=== PATIENT | female | born 1955 | race Caucasian/White ===

== ENCOUNTER 2016-05-28 12:16 | Emergency (ER) | payer BC, OTHER ==
[2016-05-28] MEDS ORDERED: ASPIRIN 81 MG CHEW TABLET As Ordered ONE (14:26)
[2016-05-28 15:01] LABS: BASO % 0.7 % (0.0-1.0); EOS # 0.1 K/mm3 (0.0-0.50); EOS % 2.2 % (0.0-3.0); LARGE UNSTAINED CELL # 0.2 K/mm3 (0.0-0.4); LYMPH # 1.3 K/mm3 (1.5-4.5); LYMPH % 23.2 % (24.0-44.0); MEAN CORPUSCULAR HEMOGLOBIN 29.7 pg (27.0-33.0); MEAN CORPUSCULAR HGB CONC 32.3 g/dl (32.0-36.5); MEAN CORPUSCULAR VOLUME 92.1 fl (80.0-96.0); MONO # 0.5 K/mm3 (0.0-0.8); MONO % 8.6 % (0.0-5.0); NEUTROPHILS # 3.5 K/mm3 (1.8-7.7); NEUTROPHILS % 61.2 % (36.0-66.0); PLATELET COUNT, AUTOMATED 302 k/mm3 (150-450); RED CELL DISTRIBUTION WIDTH 12.2 % (11.5-14.5); WHITE BLOOD COUNT 5.7 K/mm3 (4.0-10.0)
[2016-05-28 15:04] LABS: ANION GAP 7 MEQ/L (8-16); BLOOD UREA NITROGEN 14 MG/DL (7-18); CALCIUM LEVEL 8.7 MG/DL (8.8-10.2); CARBON DIOXIDE LEVEL 27 MEQ/L (21-32); CHLORIDE LEVEL 110 MEQ/L (98-107); CREATININE FOR GFR 0.67 MG/DL (0.55-1.02); GLOMERULAR FILTRATION RATE > 60.0 (>45); GLUCOSE, FASTING 100 MG/DL (80-110); POTASSIUM SERUM 4.3 MEQ/L (3.5-5.1); SODIUM LEVEL 144 MEQ/L (136-145)
--- NOTE | 2016-05-28 15:41 | REP ---
TWO VIEW CHEST: Two views of the chest are performed. There is no acute infiltrate or pulmonary edema. The heart is normal in size. There is mild calcification of the thoracic aorta. The mediastinal silhouette is unchanged. Metallic plate and screws are seen in the lower cervical spine. There is no compression deformity of thoracic vertebral bodies. IMPRESSION: No acute pulmonary disease. Signed by Jurgen Ballesteros MD 05/28/2016 05:13 P
--- NOTE | 2016-05-28 19:28 | EDDOCDS ---
Nurse's Notes [facility] Name: Consuelo Nova Age: 60 yrs Sex: Female : 1955 Arrival Date: 05/28/2016 Time: 12:16 Bed OBSERVATION Private MD: Eliezer Mendiola Abdul Diagnosis: Low back pain;Nausea and vomiting Presentation: 05/28 12:28 Presenting complaint: Patient states: 45 mins ago had pain radiating up her back to the [facility] mid back then pain in her left jaw. denies pain at this time. denies chest pain with the back pain. Presenting complaint: Patient states: no injury at the time of pain- has bone spur in base of her spine. also having a lot of problems with constipation. Acute neurological deficits are not present. Mechanism of Injury: No Mechanism of Injury. Adult Sepsis Screening: The patient does not have new or worsening altered mentation. Patient's respiratory rate is less than 22. Systolic blood pressure is greater than 100. Patient has a qSOFA score of 0- Negative Sepsis Screen. Suicide/Homicide risk assessment- the patient denies having any suicidal and/or homicidal ideations and does not present with any other emotional, behavioral or mental health complaints. Status: Patient is not a branch service representative or dependent. Transition of care: patient was not received from another setting of care. 12:28 Method Of Arrival: Walkin/Carried/Asstd [facility] 12:34 Acuity: FARHEEN Level 3 [facility] Triage Assessment: 12:32 General: Appears in no apparent distress, Behavior is appropriate for age, cooperative. [facility] Pain: Pain currently is 2 out of 10 on a pain scale. At worst was 5 out of 10 on a pain scale. Musculoskeletal: Reports mid spine pain. 19:27 Pt Declines HIV testing. ko2 Historical: - Allergies: PENICILLINS; codeine; - Home Meds: 1. Synthroid 137 mcg Oral tab 1 tab once daily - PMHx: Thyroid problem; - PSHx: Thyroidectomy; Tonsillectomy; 5-6 vertbrael fusion; Hysterectomy; - Social history: Smoking status: Patient states former smoker of tobacco. No barriers to communication noted, The patient speaks fluent Tajik, Speaks appropriately for age. - Family history: Not pertinent. - : The pt / caregiver states he / she is not on anticoagulants. Home medication list is obtained from the patient. - Exposure Risk Screening:: None identified. Screenin:25 Screening information is obtained from the patient. Fall risk: No risks identified. ko2 Assistance ADL's: requires no assistance with activities of daily living. Abuse/DV Screen: The patient / caregiver reports he/she is: not in a situation that causes fear, pain or injury. Nutritional screening: No deficits noted. Advance Directives: Currently, there is no health care proxy. There is no active DNR order. There is no living will. There is no Power of Level Vial Inspector. home support is adequate. Assessment: 13:16 Adult Sepsis Screening: The patient does not have new or worsening altered mentation. dsf Patient's respiratory rate is less than 22. Systolic blood pressure is greater than 100. Patient has a qSOFA score of 0- Negative Sepsis Screen. General: Appears in no apparent distress, Behavior is appropriate for age, cooperative. Pain: Denies pain. Neurological: Level of Consciousness is awake, alert, Oriented to person, place, time. Cardiovascular: Capillary refill < 3 seconds Heart tones S1 S2 present Rhythm is sinus rhythm No ectopy. Chest pain is denied. Respiratory: Airway is patent Respiratory effort is even, unlabored, Respiratory pattern is regular, symmetrical, Breath sounds are clear bilaterally. Denies shortness of breath. GI: Abdomen is non- distended Bowel sounds present X 4 quads. Abd is soft and non tender X 4 quads. Derm: Skin is pink, warm & dry. 14:15 General: Appears in no apparent distress, comfortable, Behavior is appropriate for age, dsf cooperative. Pain: Denies pain. Neurological: Level of Consciousness is awake, alert. Cardiovascular: Capillary refill < 3 seconds Rhythm is sinus rhythm No ectopy. Chest pain is denied. Respiratory: Airway is patent Respiratory effort is even, unlabored, Respiratory pattern is regular, symmetrical. Derm: Skin is pink, warm & dry. 15:15 General: Appears in no apparent distress, comfortable, Behavior is appropriate for age, dsf cooperative. Neurological: Level of Consciousness is awake, alert. Cardiovascular: Capillary refill < 3 seconds. Respiratory: Airway is patent Respiratory effort is even, unlabored, Respiratory pattern is regular, symmetrical. Derm: Skin is pink, warm & dry. 16:15 Adult Sepsis Screening: The patient does not have new or worsening altered mentation. dsf Patient's respiratory rate is less than 22. Systolic blood pressure is greater than 100. Patient has a qSOFA score of 0- Negative Sepsis Screen. General: Appears in no apparent distress, comfortable, Behavior is appropriate for age, cooperative. Pain: Denies pain. Neurological: Level of Consciousness is awake, alert, Oriented to person, place, time. Cardiovascular: Capillary refill < 3 seconds Rhythm is sinus rhythm No ectopy. Chest pain is denied. Respiratory: Airway is patent Respiratory effort is even, unlabored, Respiratory pattern is regular, symmetrical, Denies shortness of breath. GI: Abdomen is non- distended. Derm: Skin is pink, warm & dry. 17:15 General: Appears in no apparent distress, comfortable, Behavior is appropriate for age, dsf cooperative. Pain: Denies pain. Neurological: Level of Consciousness is awake, alert. Cardiovascular: Capillary refill < 3 seconds Rhythm is sinus rhythm No ectopy. Chest pain is denied. Respiratory: Airway is patent Respiratory effort is even, unlabored, Respiratory pattern is regular, symmetrical, Denies shortness of breath. Derm: Skin is pink, warm & dry. 19:25 General: Appears in no apparent distress, comfortable, Behavior is appropriate for age, ko2 cooperative. Pain: Denies pain. Neurological: Level of Consciousness is awake, alert. Respiratory: Airway is patent Respiratory effort is even, unlabored, Respiratory pattern is regular, symmetrical. Derm: Skin is pink, warm & dry. Vital Signs: 12:18 BP 155 / 92; Pulse 102; Resp 18 S; Temp 97.3(O); Pulse Ox 98% on R/A; Weight 63.5 kg gr2 (R); Height 5 ft. 4 in. (162.56 cm) (R); Pain 4/10; 12:50 BP 148 / 83 (auto/); dsf 12:51 Pulse Ox 98% ; dsf 12:52 Pulse 90 MON; Pulse Ox 97% ; dsf 13:20 BP 127 / 72 (auto/); dsf 13:20 Pulse 88 MON; Pulse Ox 95% ; dsf 13:50 BP 126 / 70 (auto/); dsf 13:51 Pulse 84 MON; Pulse Ox 93% ; dsf 14:18 Pulse Ox 96% on R/A; dsf 14:20 BP 151 / 80 (auto/); dsf 14:20 Pulse 86 MON; Resp 20; Pulse Ox 96% on R/A; Pain 0/10; dsf 14:50 BP 148 / 73 (auto/); dsf 14:50 Pulse 74 MON; Pulse Ox 97% ; dsf 15:20 BP 136 / 68 (auto/); dsf 15:20 Pulse 80 MON; Pulse Ox 95% ; dsf 15:50 BP 122 / 71 (auto/); dsf 15:50 Pulse 78 MON; Pulse Ox 95% ; dsf 16:20 BP 126 / 73 (auto/); dsf 16:21 Pulse 80 MON; Resp 20; Temp 97.2(O); Pulse Ox 95% on R/A; Pain 0/10; dsf 19:26 BP 116 / 66; Pulse 81; Resp 16; Temp 97.4; Pulse Ox 96% ; Pain 0/10; ko2 12:18 Body Mass Index 24.03 (63.50 kg, 162.56 cm) gr2 Vitals: 12:18 Log In Time: May 28, 2016 at 12:18. gr2 ED Course: 12:17 Patient visited by Meghan Salomon. gr2 12:17 Eliezer Mendiola is Private Physician. gr2 12:17 Patient moved to Waiting gr2 12:20 Patient visited by Meghan Salomon. gr2 12:20 Patient moved to Pre RCE gr2 12:33 Patient moved to PD2 / 27 srm 12:34 Triage Initiated srm 12:38 The patient / caregiver is instructed regarding the plan of care and ED course. Cardiac dsf monitor on. Pulse ox on. NIBP on. 12:38 EKG done. (by ED staff). Reviewed by Dnaielito Ch MD. jrd 12:39 Patient visited by Dillon Oneal PCA. jrd 12:40 Patient moved to 6 dsf 12:42 Report given to Lynsey Joyce rn. srm 13:01 Patient has correct armband on for positive identification. Placed in gown. Bed in low ct3 position. Call light in reach. Side rails up X2. 13:02 Patient visited by Hilary Brar PCA. ct3 13:17 Patient visited by Lore Joyce RN. dsf 13:27 Kristin German DO is PHCP. jo4 13:27 Danielito Ch MD is Attending Physician. jo4 14:01 Patient visited by Kristin German DO. jo4 14:01 Patient visited by Kristin German DO. jo4 14:23 Patient visited by Lore Joyce RN. dsf 14:23 Cardiac Marker Panel Sent. dsf 14:23 Troponin Sent. dsf 14:32 Patient visited by Danielito Ch MD. br1 14:34 CBC with Diff Sent. dsf 14:46 Inserted saline lock: 20 gauge in right antecubital area The patient tolerated the dsf procedure well. 14:59 Patient moved to Radiology dsf 14:59 BASIC METABOLIC PROFILE Sent. dsf 15:03 Patient moved to 6 dsf 15:32 Patient visited by Lore Joyce RN. dsf 15:39 Patient moved to OBSERVATION jo4 16:14 Chest, 2 View (pa\E\lat) Returned. EDMS 16:34 [facility] [place] was scanned into [employer] and attached to record. gjb 16:38 Patient visited by Lore Joyce RN. dsf 17:14 Chest, 2 View (pa\E\lat) Returned. EDMS 17:48 Patient visited by Lore Joyce RN. dsf 18:16 Chest, 2 View (pa\E\lat) Returned. EDMS 18:24 Eliezer Mendiola is Referral Physician. jo4 18:29 Gold Villavicencio is Referral Physician. jo4 19:09 Ashwini Gonzalez,FELICIA is Primary Nurse. ko2 19:26 Discontinued lock intact, bleeding controlled, pressure dressing applied, No ko2 redness/swelling at site. No procedures done that require assistance. Administered Medications: 14:29 Not Given (pt took 2 at home provider notified ): Aspirin Chewable Tablet 324 mg PO oncedsf 14:31 Drug: Aspirin 162 mg [aspirin 81 mg chewable tablet (2 tabs)] Route: PO; dsf Order Results: Lab Order: Cardiac Marker Panel; SPEC'M 05/28/16 14:22 Test: CPK CREATINE PHOSPHOKINASE; Value: 74; Range: 26-192; Units: U/L; Status: F Test: CK-MB VALUE MASS; Value: 1.3; Range: 0.0-3.6; Units: NG/ML; Status: F Test: MB/CK RELATIVE INDEX; Value: 1.75; Range: < OR =4; Status: F Test: TROPONIN I; Value: < 0.02; Range: < 0.10; Units: NG/ML; Status: F Test Note: ; DIAGNOSIS CRITERIA MMB ng/ml Relative Index (RI) NON-AMI < or = 5 N/A BALLESTEROS ZONE > 5 < or = 4 AMI > 5 > 4 Lab Order: CBC with Diff; SPEC'M 05/28/16 14:22 Test: WHITE BLOOD COUNT; Value: 5.7; Range: 4.0-10.0; Units: K/mm3; Status: F Test: RED BLOOD COUNT; Value: 4.65; Range: 4.00-5.40; Units: M/mm3; Status: F Test: HEMOGLOBIN; Value: 13.8; Range: 12.0-16.0; Units: g/dl; Status: F Test: HEMATOCRIT; Value: 42.8; Range: 36.0-47.0; Units: %; Status: F Test: MEAN CORPUSCULAR VOLUME; Value: 92.1; Range: 80.0-96.0; Units: fl; Status: F Test: MEAN CORPUSCULAR HEMOGLOBIN; Value: 29.7; Range: 27.0-33.0; Units: pg; Status: F Test: MEAN CORPUSCULAR HGB CONC; Value: 32.3; Range: 32.0-36.5; Units: g/dl; Status: F Test: RED CELL DISTRIBUTION WIDTH; Value: 12.2; Range: 11.5-14.5; Units: %; Status: F Test: PLATELET COUNT, AUTOMATED; Value: 302; Range: 150-450; Units: k/mm3; Status: F Test: NEUTROPHILS %; Value: 61.2; Range: 36.0-66.0; Units: %; Status: F Test: LYMPH %; Value: 23.2; Range: 24.0-44.0; Abnormal: Below low normal; Units: %; Status: F Test: MONO %; Value: 8.6; Range: 0.0-5.0; Abnormal: Above high normal; Units: %; Status: F Test: EOS %; Value: 2.2; Range: 0.0-3.0; Units: %; Status: F Test: BASO %; Value: 0.7; Range: 0.0-1.0; Units: %; Status: F Test: LARGE UNSTAINED CELL %; Value: 4.0; Range: 0.0-4.0; Units: %; Status: F Test: NEUTROPHILS #; Value: 3.5; Range: 1.8-7.7; Units: K/mm3; Status: F Test: LYMPH #; Value: 1.3; Range: 1.5-4.5; Abnormal: Below low normal; Units: K/mm3; Status: F Test: MONO #; Value: 0.5; Range: 0.0-0.8; Units: K/mm3; Status: F Test: EOS #; Value: 0.1; Range: 0.0-0.50; Units: K/mm3; Status: F Test: BASO #; Value: 0.0; Range: 0.0-0.2; Units: K/mm3; Status: F Test: LARGE UNSTAINED CELL #; Value: 0.2; Range: 0.0-0.4; Units: K/mm3; Status: F Lab Order: BASIC METABOLIC PROFILE; SPEC'M 05/28/16 14:22 Test: GLUCOSE, FASTING; Value: 100; Range: 80-110; Units: MG/DL; Status: F Test: BLOOD UREA NITROGEN; Value: 14; Range: 7-18; Units: MG/DL; Status: F Test: CREATININE FOR GFR; Value: 0.67; Range: 0.55-1.02; Units: MG/DL; Status: F Test: SODIUM LEVEL; Range: 136-145; Units: MEQ/L; Status: I Test: POTASSIUM SERUM; Range: 3.5-5.1; Units: MEQ/L; Status: I Test: CHLORIDE LEVEL; Range: 98-107; Units: MEQ/L; Status: I Test: CARBON DIOXIDE LEVEL; Range: 21-32; Units: MEQ/L; Status: I Test: ANION GAP; Range: 8-16; Units: MEQ/L; Status: I Test: CALCIUM LEVEL; Range: 8.8-10.2; Units: MG/DL; Status: I Test: GLOMERULAR FILTRATION RATE; Value: > 60.0; Range: >45; Status: F Test: SODIUM LEVEL; Value: 144; Range: 136-145; Units: MEQ/L; Status: F Test: POTASSIUM SERUM; Value: 4.3; Range: 3.5-5.1; Units: MEQ/L; Status: F Test: CHLORIDE LEVEL; Value: 110; Range: 98-107; Abnormal: Above high normal; Units: MEQ/L; Status: F Test: CARBON DIOXIDE LEVEL; Value: 27; Range: 21-32; Units: MEQ/L; Status: F Test: ANION GAP; Value: 7; Range: 8-16; Abnormal: Below low normal; Units: MEQ/L; Status: F Test: CALCIUM LEVEL; Value: 8.7; Range: 8.8-10.2; Abnormal: Below low normal; Units: MG/DL; Status: F Test Note: ; Units are mL/min/1.73 m2 Chronic Kidney Disease Staging per NKF: Stage I & II GFR >=60 Normal to Mildly Decreased Stage III GFR 30-59 Moderately Decreased Stage IV GFR 15-29 Severely Decreased Stage V GFR <15 Very Little GFR Left ESRD GFR <15 on [facility] Lab Order: CARDIAC MARKER PANEL; SPEC'M 05/28/16 17:41 Test: CPK CREATINE PHOSPHOKINASE; Value: 76; Range: 26-192; Units: U/L; Status: F Test: CK-MB VALUE MASS; Value: 1.2; Range: 0.0-3.6; Units: NG/ML; Status: F Test: MB/CK RELATIVE INDEX; Value: 1.57; Range: < OR =4; Status: F Test: TROPONIN I; Value: < 0.02; Range: < 0.10; Units: NG/ML; Status: F Test Note: ; DIAGNOSIS CRITERIA MMB ng/ml Relative Index (RI) NON-AMI < or = 5 N/A BALLESTEROS ZONE > 5 < or = 4 AMI > 5 > 4 Radiology Order: Chest, 2 View (pa\E\lat) Test: Chest, 2 View (pa\E\lat) REASON FOR EXAMINATION: Nausea; TWO VIEW CHEST:; ; Two views of the chest are performed. There is no acute infiltrate or pulmonary; edema. The heart is normal in size. There is mild calcification of the thoracic; aorta. The mediastinal silhouette is unchanged. Metallic plate and screws are; seen in the lower cervical spine. There is no compression deformity of thoracic; vertebral bodies.; ; IMPRESSION:; ; No acute pulmonary disease.; ; ; Signed by; Jurgen Ballesteros MD 05/28/2016 05:13 P; Outcome: 18:24 Discharge ordered by Provider. jo4 19:27 Discharge Assessment: Patient awake, alert and oriented x 3. No cognitive and/or ko2 functional deficits noted. Patient verbalized understanding of disposition instructions. patient administered narcotics - no. The following High Risk Discharge criteria are identified: None. Discharged to home ambulatory. Condition: stable. Discharge instructions given to patient, Instructed on discharge instructions, follow up and referral plans. Demonstrated understanding of instructions, Pt was receptive of discharge instructions/ teaching. No special radiology studies were completed. Property sent home with patient. 19:27 Patient left the ED. ko2 Signatures: Dispatcher [employer] EDMS Mariana Shaver, RN RN [facility] Danielito Ch MD MD br1 Hilary Brar, CASH MANAGEMENT OFFICER CASH MANAGEMENT OFFICER ct3 Lore Joyce,RN RN dsf Meghan Salomon gr2 Ashwini Gonzalez RN RN ko2 Dillon Oneal, CASH MANAGEMENT OFFICER CASH MANAGEMENT OFFICER Adriana Arreola Jane, DO DO jo4 Corrections: (The following items were deleted from the chart) 14:58 14:34 BASIC METABOLIC PROFILE+LAB sent. dsf EDMS 16:37 16:21 Pulse 80bpm; Monitor; Pulse Ox 95%; dsf dsf MTDD
--- NOTE | 2016-05-28 19:28 | EDDOCDS ---
Physician Documentation [facility] Name: Consuelo Nova Age: 60 yrs Sex: Female : 1955 Arrival Date: 05/28/2016 Time: 12:16 Bed OBSERVATION Private MD: Eliezer Mendiola Abdul Disposition: 05/28 18:25 I have independently interviewed and examined the patient, and I agree with the br1 investigation, diagnosis and treatment plan as documented by the Resident. Disposition: 05/28/16 18:24 Discharged to Home/Self Care. Impression: Low back pain, Nausea and vomiting. - Condition is Stable. - Work Release Form - 1 day, Medication Reconciliation, Local Pharmacy Hours form. - Follow up: Eliezer Mendiola; When: Call to arrange an appointment; Reason: Recheck today's complaints, Continuance of care. Follow up: Gold Villavicencio; When: Call to arrange an appointment; Reason: Recheck today's complaints. - Problem is new. - Symptoms have improved. - Notes: You were evaluated in the emergency department for radiating back pain causing nausea, vomiting, and left jaw pain. A cardiac work-up has been negative. Please follow-up with Dr. Mendiola at your soonest convenience to discuss today's complaints. Also schedule an appointment with Dr. Villavicencio' office (valuer) at your soonest convenience. Historical: - Allergies: PENICILLINS; codeine; - Home Meds: 1. Synthroid 137 mcg Oral tab 1 tab once daily - PMHx: Thyroid problem; - PSHx: Thyroidectomy; Tonsillectomy; 5-6 vertbrael fusion; Hysterectomy; - Social history: Smoking status: Patient states former smoker of tobacco. No barriers to communication noted, The patient speaks fluent Czech, Speaks appropriately for age. - Family history: Not pertinent. - : The pt / caregiver states he / she is not on anticoagulants. Home medication list is obtained from the patient. - Exposure Risk Screening:: None identified. Vital Signs: 12:18 BP 155 / 92; Pulse 102; Resp 18 S; Temp 97.3(O); Pulse Ox 98% on R/A; Weight 63.5 kg / gr2 139.99 lbs (R); Height 5 ft. 4 in. (162.56 cm) (R); Pain 4/10; 12:50 BP 148 / 83 (auto/); dsf 12:51 Pulse Ox 98% ; dsf 12:52 Pulse 90 MON; Pulse Ox 97% ; dsf 13:20 BP 127 / 72 (auto/); dsf 13:20 Pulse 88 MON; Pulse Ox 95% ; dsf 13:50 BP 126 / 70 (auto/); dsf 13:51 Pulse 84 MON; Pulse Ox 93% ; dsf 14:18 Pulse Ox 96% on R/A; dsf 14:20 BP 151 / 80 (auto/); dsf 14:20 Pulse 86 MON; Resp 20; Pulse Ox 96% on R/A; Pain 0/10; dsf 14:50 BP 148 / 73 (auto/); dsf 14:50 Pulse 74 MON; Pulse Ox 97% ; dsf 15:20 BP 136 / 68 (auto/); dsf 15:20 Pulse 80 MON; Pulse Ox 95% ; dsf 15:50 BP 122 / 71 (auto/); dsf 15:50 Pulse 78 MON; Pulse Ox 95% ; dsf 16:20 BP 126 / 73 (auto/); dsf 16:21 Pulse 80 MON; Resp 20; Temp 97.2(O); Pulse Ox 95% on R/A; Pain 0/10; dsf 19:26 BP 116 / 66; Pulse 81; Resp 16; Temp 97.4; Pulse Ox 96% ; Pain 0/10; ko2 12:18 Body Mass Index 24.03 (63.50 kg, 162.56 cm) gr2 MDM: 12:33 ECG WITH READING ER PHYS+CARDIAG ordered. EDMS 14:16 Aviation Electrician ordered. jo4 14:17 Cardiac Marker Panel Ordered. EDMS 14:17 Troponin Ordered. EDMS 14:23 Aspirin Chewable Tablet 324 mg PO once ordered. jo4 14:25 Chest, 2 View (pa\E\lat) Ordered. EDMS 14:29 Aspirin 162 mg PO once ordered. dsf 14:33 IV Saline Lock ordered. br1 14:33 CBC with Diff Ordered. EDMS 14:58 BASIC METABOLIC PROFILE Ordered. EDMS 15:08 CBC with Diff Reviewed. jo4 15:08 BASIC METABOLIC PROFILE Reviewed. jo4 15:09 Cardiac Marker Panel Reviewed. jo4 15:32 Financial registration complete. gjb 15:38 Repeat EKG (put time details section) ordered. jo4 15:38 Redraw CIP &Troponin (put time in details section) ordered. jo4 15:44 Redraw CIP &Troponin (put time in details section) complete. lbd 15:44 Repeat EKG (put time details section) complete. lbd 15:46 CARDIAC MARKER PANEL Ordered. EDMS 15:47 ECG WITH READING ER PHYS ordered. EDMS 16:33 Chest, 2 View (pa\E\lat) Reviewed. jo4 16:34 [facility] Payment Agreement was scanned into [employer] and attached to record. gjb 18:14 Chest, 2 View (pa\E\lat) Reviewed. jo4 18:22 CARDIAC MARKER PANEL Reviewed. jo4 18:23 Chest, 2 View (pa\E\lat) Reviewed. br1 18:25 ED course: 60 you F seen with resident. Complained of back pain that radiated to left br1 jaw, now resolved. No further chest pain, shortness of breath, lightheadedness, or any other concerns. Serial EKG unchanged, enzymes negative. Discussed case with Dr. Villavicencio. Plan DC home, follow up with Dr. Villavicencio in the office. Patient in agreement, will call for appointment.. Administered Medications: 14:29 Not Given (pt took 2 at home provider notified ): Aspirin Chewable Tablet 324 mg PO oncedsf 14:31 Drug: Aspirin 162 mg [aspirin 81 mg chewable tablet (2 tabs)] Route: PO; dsf Signatures: Dispatcher [employer] EDMI Kaykay Lugo, Airworthiness Safety Inspector [facility] Mariana Shaver RN RN srm Roggie, Brian, MD MD br1 Lore Joyce RN RN dsf Ashwini Gonzalez RN RN [email or web address] Adriana Thibodeaux [employer] [facility] Kristin German DO DO jo4 The chart was reviewed and I authenticate all verbal orders and agree with the evaluation and treatment provided.Corrections: (The following items were deleted from the chart) 14:58 14:33 BASIC METABOLIC PROFILE+LAB ordered. EDMS EDMS 15:38 15:36 Repeat EKG (put time details section) ordered. br1 jo4 15:38 15:36 Redraw CIP &Troponin (put time in details section) ordered. br1 jo4 Attachments: 16:34 [facility] Payment Agreement gjb MTDD
--- NOTE | 2016-05-29 08:20 | ECGEPIP ---
Stationary ECG Study [facility] - ED Test Date: 2016-05-28 Pat Name: HIEN SANCHEZ Department: Room: - Gender: F Conference Translator: osmin : 1955 Requested By: JORDYN Wilson Order Number: [id number] Reading MD: Caity Oliver Measurements Intervals [place] Rate: 87 P: 56 TN: 128 QRS: -3 QRSD: 92 T: 24 QT: 353 QTc: 427 Interpretive Statements SINUS RHYTHM MINIMAL ST DEPRESSION INCREASED RATE 05/23/14 Electronically Signed On 05-29-2016 8:20:29 EST by Caity Oliver
--- NOTE | 2016-05-29 08:37 | ECGEPIP ---
Stationary ECG Study [facility] - ED Test Date: 2016-05-28 Pat Name: HIEN SANCHEZ Department: Room: - Gender: F Senior Front End Engineer: osmin : 1955 Requested By: MARY GRACIA Order Number: [id number] Reading MD: Caity Oliver Measurements Intervals [place] Rate: 79 P: 44 [place]: 125 QRS: -10 QRSD: 116 T: 2 QT: 379 QTc: 436 Interpretive Statements SINUS RHYTHM MODERATE INTRAVENTRICULAR CONDUCTION DELAY MINIMAL VOLTAGE CRITERIA FOR LVH, CONSIDER NORMAL VARIANT MINIMAL ST DEPRESSION DECREASED RATE 05/28/16 12:39 Electronically Signed On 05-29-2016 8:37:04 EST by Caity Oliver
--- NOTE | 2016-05-30 20:28 | EDDOCDS ---
Physician Documentation [facility] Name: Consuelo Nova Age: 60 yrs Sex: Female : 1955 Arrival Date: 05/28/2016 Time: 12:16 Bed OBSERVATION Private MD: Eliezer Mendiola Abdul Disposition: 05/28 18:25 I have independently interviewed and examined the patient, and I agree with the br1 investigation, diagnosis and treatment plan as documented by the Resident. Disposition: 05/28/16 18:24 Discharged to Home/Self Care. Impression: Low back pain, Nausea and vomiting. - Condition is Stable. - Work Release Form - 1 day, Medication Reconciliation, Local Pharmacy Hours form. - Follow up: Eliezer Mendiola; When: Call to arrange an appointment; Reason: Recheck today's complaints, Continuance of care. Follow up: Gold Villavicencio; When: Call to arrange an appointment; Reason: Recheck today's complaints. - Problem is new. - Symptoms have improved. - Notes: You were evaluated in the emergency department for radiating back pain causing nausea, vomiting, and left jaw pain. A cardiac work-up has been negative. Please follow-up with Dr. Mendiola at your soonest convenience to discuss today's complaints. Also schedule an appointment with Dr. Villavicencio' office (incident response consultant) at your soonest convenience. Historical: - Allergies: PENICILLINS; codeine; - Home Meds: 1. Synthroid 137 mcg Oral tab 1 tab once daily - PMHx: Thyroid problem; - PSHx: Thyroidectomy; Tonsillectomy; 5-6 vertbrael fusion; Hysterectomy; - Social history: Smoking status: Patient states former smoker of tobacco. No barriers to communication noted, The patient speaks fluent [place], Speaks appropriately for age. - Family history: Not pertinent. - : The pt / caregiver states he / she is not on anticoagulants. Home medication list is obtained from the patient. - Exposure Risk Screening:: None identified. Vital Signs: 12:18 BP 155 / 92; Pulse 102; Resp 18 S; Temp 97.3(O); Pulse Ox 98% on R/A; Weight 63.5 kg / gr2 139.99 lbs (R); Height 5 ft. 4 in. (162.56 cm) (R); Pain 4/10; 12:50 BP 148 / 83 (auto/); dsf 12:51 Pulse Ox 98% ; dsf 12:52 Pulse 90 MON; Pulse Ox 97% ; dsf 13:20 BP 127 / 72 (auto/); dsf 13:20 Pulse 88 MON; Pulse Ox 95% ; dsf 13:50 BP 126 / 70 (auto/); dsf 13:51 Pulse 84 MON; Pulse Ox 93% ; dsf 14:18 Pulse Ox 96% on R/A; dsf 14:20 BP 151 / 80 (auto/); dsf 14:20 Pulse 86 MON; Resp 20; Pulse Ox 96% on R/A; Pain 0/10; dsf 14:50 BP 148 / 73 (auto/); dsf 14:50 Pulse 74 MON; Pulse Ox 97% ; dsf 15:20 BP 136 / 68 (auto/); dsf 15:20 Pulse 80 MON; Pulse Ox 95% ; dsf 15:50 BP 122 / 71 (auto/); dsf 15:50 Pulse 78 MON; Pulse Ox 95% ; dsf 16:20 BP 126 / 73 (auto/); dsf 16:21 Pulse 80 MON; Resp 20; Temp 97.2(O); Pulse Ox 95% on R/A; Pain 0/10; dsf 19:26 BP 116 / 66; Pulse 81; Resp 16; Temp 97.4; Pulse Ox 96% ; Pain 0/10; ko2 12:18 Body Mass Index 24.03 (63.50 kg, 162.56 cm) gr2 MDM: 12:33 ECG WITH READING ER PHYS+CARDIAG ordered. EDMS 14:16 Slate Cutter ordered. jo4 14:17 Cardiac Marker Panel Ordered. EDMS 14:17 Troponin Ordered. EDMS 14:23 Aspirin Chewable Tablet 324 mg PO once ordered. jo4 14:25 Chest, 2 View (pa\E\lat) Ordered. EDMS 14:29 Aspirin 162 mg PO once ordered. dsf 14:33 IV Saline Lock ordered. br1 14:33 CBC with Diff Ordered. EDMS 14:58 BASIC METABOLIC PROFILE Ordered. EDMS 15:08 CBC with Diff Reviewed. jo4 15:08 BASIC METABOLIC PROFILE Reviewed. jo4 15:09 Cardiac Marker Panel Reviewed. jo4 15:32 Financial registration complete. gjb 15:38 Repeat EKG (put time details section) ordered. jo4 15:38 Redraw CIP &Troponin (put time in details section) ordered. jo4 15:44 Redraw CIP &Troponin (put time in details section) complete. lbd 15:44 Repeat EKG (put time details section) complete. lbd 15:46 CARDIAC MARKER PANEL Ordered. EDMS 15:47 ECG WITH READING ER PHYS ordered. EDMS 16:33 Chest, 2 View (pa\E\lat) Reviewed. jo4 16:34 [facility] Payment Agreement was scanned into Blockchain and attached to record. gjb 18:14 Chest, 2 View (pa\E\lat) Reviewed. jo4 18:22 CARDIAC MARKER PANEL Reviewed. jo4 18:23 Chest, 2 View (pa\E\lat) Reviewed. br1 18:25 ED course: 60 you F seen with resident. Complained of back pain that radiated to left br1 jaw, now resolved. No further chest pain, shortness of breath, lightheadedness, or any other concerns. Serial EKG unchanged, enzymes negative. Discussed case with Dr. Villavicencio. Plan DC home, follow up with Dr. Villavicencio in the office. Patient in agreement, will call for appointment.. 05/29 11:05 T-Sheet-- Draft Copy was scanned into Blockchain and attached to record. gb 11:06 ECG/EKG was scanned into Blockchain and attached to record. gb 11:06 Radiology Report was scanned into Blockchain and attached to record. gb Administered Medications: 05/28 14:29 Not Given (pt took 2 at home provider notified ): Aspirin Chewable Tablet 324 mg PO oncedsf 14:31 Drug: Aspirin 162 mg [aspirin 81 mg chewable tablet (2 tabs)] Route: PO; dsf Signatures: Dispatcher [employer] EDMS Kaykay Luog, Insole Reinforcer Unit lbd Mariana Shaver RN RN [facility] Jaida Johnson, Reg Reg Danielito Ch MD MD br1 Lore Joyce RN RN dsf Ashwini Gonzalez RN RN [id number] Adriana Thibodeaux gjb Kristin German DO DO jo4 The chart was reviewed and I authenticate all verbal orders and agree with the evaluation and treatment provided.Corrections: (The following items were deleted from the chart) 14:58 14:33 BASIC METABOLIC PROFILE+LAB ordered. EDMS EDMS 15:38 15:36 Repeat EKG (put time details section) ordered. br1 jo4 15:38 15:36 Redraw CIP &Troponin (put time in details section) ordered. chet jo4 Attachments: 16:34 [facility] Payment Agreement gjb 05/29 11:05 T-Sheet-- Draft Copy gb 11:06 ECG/EKG gb Chart Complete MTDD
--- NOTE | 2016-05-30 20:28 | EDDOCDS ---
Physician Documentation [facility] Name: Consuelo Nova Age: 60 yrs Sex: Female : 1955 Arrival Date: 05/28/2016 Time: 12:16 Bed OBSERVATION Private MD: Eliezer Mendiola Abdul Disposition: 05/28 18:25 I have independently interviewed and examined the patient, and I agree with the br1 investigation, diagnosis and treatment plan as documented by the Resident. Disposition: 05/28/16 18:24 Discharged to Home/Self Care. Impression: Low back pain, Nausea and vomiting. - Condition is Stable. - Work Release Form - 1 day, Medication Reconciliation, Local Pharmacy Hours form. - Follow up: Eliezer Mendiola; When: Call to arrange an appointment; Reason: Recheck today's complaints, Continuance of care. Follow up: Gold Villavicencio; When: Call to arrange an appointment; Reason: Recheck today's complaints. - Problem is new. - Symptoms have improved. - Notes: You were evaluated in the emergency department for radiating back pain causing nausea, vomiting, and left jaw pain. A cardiac work-up has been negative. Please follow-up with Dr. Mendiola at your soonest convenience to discuss today's complaints. Also schedule an appointment with Dr. Villavicencio' office (hydrogen plant operations manager) at your soonest convenience. Historical: - Allergies: PENICILLINS; codeine; - Home Meds: 1. Synthroid 137 mcg Oral tab 1 tab once daily - PMHx: Thyroid problem; - PSHx: Thyroidectomy; Tonsillectomy; 5-6 vertbrael fusion; Hysterectomy; - Social history: Smoking status: Patient states former smoker of tobacco. No barriers to communication noted, The patient speaks fluent [place], Speaks appropriately for age. - Family history: Not pertinent. - : The pt / caregiver states he / she is not on anticoagulants. Home medication list is obtained from the patient. - Exposure Risk Screening:: None identified. Vital Signs: 12:18 BP 155 / 92; Pulse 102; Resp 18 S; Temp 97.3(O); Pulse Ox 98% on R/A; Weight 63.5 kg / gr2 139.99 lbs (R); Height 5 ft. 4 in. (162.56 cm) (R); Pain 4/10; 12:50 BP 148 / 83 (auto/); dsf 12:51 Pulse Ox 98% ; dsf 12:52 Pulse 90 MON; Pulse Ox 97% ; dsf 13:20 BP 127 / 72 (auto/); dsf 13:20 Pulse 88 MON; Pulse Ox 95% ; dsf 13:50 BP 126 / 70 (auto/); dsf 13:51 Pulse 84 MON; Pulse Ox 93% ; dsf 14:18 Pulse Ox 96% on R/A; dsf 14:20 BP 151 / 80 (auto/); dsf 14:20 Pulse 86 MON; Resp 20; Pulse Ox 96% on R/A; Pain 0/10; dsf 14:50 BP 148 / 73 (auto/); dsf 14:50 Pulse 74 MON; Pulse Ox 97% ; dsf 15:20 BP 136 / 68 (auto/); dsf 15:20 Pulse 80 MON; Pulse Ox 95% ; dsf 15:50 BP 122 / 71 (auto/); dsf 15:50 Pulse 78 MON; Pulse Ox 95% ; dsf 16:20 BP 126 / 73 (auto/); dsf 16:21 Pulse 80 MON; Resp 20; Temp 97.2(O); Pulse Ox 95% on R/A; Pain 0/10; dsf 19:26 BP 116 / 66; Pulse 81; Resp 16; Temp 97.4; Pulse Ox 96% ; Pain 0/10; ko2 12:18 Body Mass Index 24.03 (63.50 kg, 162.56 cm) gr2 MDM: 12:33 ECG WITH READING ER PHYS+CARDIAG ordered. EDMS 14:16 Clinical Education Assistant ordered. jo4 14:17 Cardiac Marker Panel Ordered. EDMS 14:17 Troponin Ordered. EDMS 14:23 Aspirin Chewable Tablet 324 mg PO once ordered. jo4 14:25 Chest, 2 View (pa\E\lat) Ordered. EDMS 14:29 Aspirin 162 mg PO once ordered. dsf 14:33 IV Saline Lock ordered. br1 14:33 CBC with Diff Ordered. EDMS 14:58 BASIC METABOLIC PROFILE Ordered. EDMS 15:08 CBC with Diff Reviewed. jo4 15:08 BASIC METABOLIC PROFILE Reviewed. jo4 15:09 Cardiac Marker Panel Reviewed. jo4 15:32 Financial registration complete. gjb 15:38 Repeat EKG (put time details section) ordered. jo4 15:38 Redraw CIP &Troponin (put time in details section) ordered. jo4 15:44 Redraw CIP &Troponin (put time in details section) complete. lbd 15:44 Repeat EKG (put time details section) complete. lbd 15:46 CARDIAC MARKER PANEL Ordered. EDMS 15:47 ECG WITH READING ER PHYS ordered. EDMS 16:33 Chest, 2 View (pa\E\lat) Reviewed. jo4 16:34 [facility] [place] Payment Agreement was scanned into [employer] and attached to record. gjb 18:14 Chest, 2 View (pa\E\lat) Reviewed. jo4 18:22 CARDIAC MARKER PANEL Reviewed. jo4 18:23 Chest, 2 View (pa\E\lat) Reviewed. br1 18:25 ED course: 60 you F seen with resident. Complained of back pain that radiated to left br1 jaw, now resolved. No further chest pain, shortness of breath, lightheadedness, or any other concerns. Serial EKG unchanged, enzymes negative. Discussed case with Dr. Villavicencio. Plan DC home, follow up with Dr. Villavicencio in the office. Patient in agreement, will call for appointment.. 05/29 11:05 T-Sheet-- Draft Copy was scanned into [employer] and attached to record. gb 11:06 ECG/EKG was scanned into [employer] and attached to record. gb 11:06 Radiology Report was scanned into [employer] and attached to record. gb Administered Medications: 05/28 14:29 Not Given (pt took 2 at home provider notified ): Aspirin Chewable Tablet 324 mg PO oncedsf 14:31 Drug: Aspirin 162 mg [aspirin 81 mg chewable tablet (2 tabs)] Route: PO; dsf Signatures: Dispatcher [employer] EDMS Kaykay Lugo, Car Driver Unit lbd Mariana Shaver RN RN [facility] Jaida Johnson, Reg Reg Danielito Ch MD MD br1 Lore Joyce RN RN dsf Ashwini Gonzalez RN RN trudy2 Adriana Thibodeaux gjb Kristin German DO DO jo4 The chart was reviewed and I authenticate all verbal orders and agree with the evaluation and treatment provided.Corrections: (The following items were deleted from the chart) 14:58 14:33 BASIC METABOLIC PROFILE+LAB ordered. EDMS EDMS 15:38 15:36 Repeat EKG (put time details section) ordered. br1 jo4 15:38 15:36 Redraw CIP &Troponin (put time in details section) ordered. chet jo4 Attachments: 16:34 [facility] [place] Payment Agreement gjb 05/29 11:05 T-Sheet-- Draft Copy gb 11:06 ECG/EKG gb Chart Complete MTDD
--- NOTE | 2016-05-30 20:28 | EDDOCDS ---
Nurse's Notes [facility] Name: Hien Sanchez Age: 60 yrs Sex: Female : 1955 Arrival Date: 05/28/2016 Time: 12:16 Bed OBSERVATION Private MD: Eliezer Mendiola Abdul Diagnosis: Low back pain;Nausea and vomiting Presentation: 05/28 12:28 Presenting complaint: Patient states: 45 mins ago had pain radiating up her back to the [facility] mid back then pain in her left jaw. denies pain at this time. denies chest pain with the back pain. Presenting complaint: Patient states: no injury at the time of pain- has bone spur in base of her spine. also having a lot of problems with constipation. Acute neurological deficits are not present. Mechanism of Injury: No Mechanism of Injury. Adult Sepsis Screening: The patient does not have new or worsening altered mentation. Patient's respiratory rate is less than 22. Systolic blood pressure is greater than 100. Patient has a qSOFA score of 0- Negative Sepsis Screen. Suicide/Homicide risk assessment- the patient denies having any suicidal and/or homicidal ideations and does not present with any other emotional, behavioral or mental health complaints. Status: Patient is not a lawn service worker or dependent. Transition of care: patient was not received from another setting of care. 12:28 Method Of Arrival: Walkin/Carried/Asstd [facility] 12:34 Acuity: FARHEEN Level 3 [facility] Triage Assessment: 12:32 General: Appears in no apparent distress, Behavior is appropriate for age, cooperative. [facility] Pain: Pain currently is 2 out of 10 on a pain scale. At worst was 5 out of 10 on a pain scale. Musculoskeletal: Reports mid spine pain. 19:27 Pt Declines HIV testing. ko2 Historical: - Allergies: PENICILLINS; codeine; - Home Meds: 1. Synthroid 137 mcg Oral tab 1 tab once daily - PMHx: Thyroid problem; - PSHx: Thyroidectomy; Tonsillectomy; 5-6 vertbrael fusion; Hysterectomy; - Social history: Smoking status: Patient states former smoker of tobacco. No barriers to communication noted, The patient speaks fluent Arabic, Speaks appropriately for age. - Family history: Not pertinent. - : The pt / caregiver states he / she is not on anticoagulants. Home medication list is obtained from the patient. - Exposure Risk Screening:: None identified. Screenin:25 Screening information is obtained from the patient. Fall risk: No risks identified. ko2 Assistance ADL's: requires no assistance with activities of daily living. Abuse/DV Screen: The patient / caregiver reports he/she is: not in a situation that causes fear, pain or injury. Nutritional screening: No deficits noted. Advance Directives: Currently, there is no health care proxy. There is no active DNR order. There is no living will. There is no Power of Mobile Home Laborer. home support is adequate. Assessment: 13:16 Adult Sepsis Screening: The patient does not have new or worsening altered mentation. dsf Patient's respiratory rate is less than 22. Systolic blood pressure is greater than 100. Patient has a qSOFA score of 0- Negative Sepsis Screen. General: Appears in no apparent distress, Behavior is appropriate for age, cooperative. Pain: Denies pain. Neurological: Level of Consciousness is awake, alert, Oriented to person, place, time. Cardiovascular: Capillary refill < 3 seconds Heart tones S1 S2 present Rhythm is sinus rhythm No ectopy. Chest pain is denied. Respiratory: Airway is patent Respiratory effort is even, unlabored, Respiratory pattern is regular, symmetrical, Breath sounds are clear bilaterally. Denies shortness of breath. GI: Abdomen is non- distended Bowel sounds present X 4 quads. Abd is soft and non tender X 4 quads. Derm: Skin is pink, warm & dry. 14:15 General: Appears in no apparent distress, comfortable, Behavior is appropriate for age, dsf cooperative. Pain: Denies pain. Neurological: Level of Consciousness is awake, alert. Cardiovascular: Capillary refill < 3 seconds Rhythm is sinus rhythm No ectopy. Chest pain is denied. Respiratory: Airway is patent Respiratory effort is even, unlabored, Respiratory pattern is regular, symmetrical. Derm: Skin is pink, warm & dry. 15:15 General: Appears in no apparent distress, comfortable, Behavior is appropriate for age, dsf cooperative. Neurological: Level of Consciousness is awake, alert. Cardiovascular: Capillary refill < 3 seconds. Respiratory: Airway is patent Respiratory effort is even, unlabored, Respiratory pattern is regular, symmetrical. Derm: Skin is pink, warm & dry. 16:15 Adult Sepsis Screening: The patient does not have new or worsening altered mentation. dsf Patient's respiratory rate is less than 22. Systolic blood pressure is greater than 100. Patient has a qSOFA score of 0- Negative Sepsis Screen. General: Appears in no apparent distress, comfortable, Behavior is appropriate for age, cooperative. Pain: Denies pain. Neurological: Level of Consciousness is awake, alert, Oriented to person, place, time. Cardiovascular: Capillary refill < 3 seconds Rhythm is sinus rhythm No ectopy. Chest pain is denied. Respiratory: Airway is patent Respiratory effort is even, unlabored, Respiratory pattern is regular, symmetrical, Denies shortness of breath. GI: Abdomen is non- distended. Derm: Skin is pink, warm & dry. 17:15 General: Appears in no apparent distress, comfortable, Behavior is appropriate for age, dsf cooperative. Pain: Denies pain. Neurological: Level of Consciousness is awake, alert. Cardiovascular: Capillary refill < 3 seconds Rhythm is sinus rhythm No ectopy. Chest pain is denied. Respiratory: Airway is patent Respiratory effort is even, unlabored, Respiratory pattern is regular, symmetrical, Denies shortness of breath. Derm: Skin is pink, warm & dry. 19:25 General: Appears in no apparent distress, comfortable, Behavior is appropriate for age, ko2 cooperative. Pain: Denies pain. Neurological: Level of Consciousness is awake, alert. Respiratory: Airway is patent Respiratory effort is even, unlabored, Respiratory pattern is regular, symmetrical. Derm: Skin is pink, warm & dry. Vital Signs: 12:18 BP 155 / 92; Pulse 102; Resp 18 S; Temp 97.3(O); Pulse Ox 98% on R/A; Weight 63.5 kg gr2 (R); Height 5 ft. 4 in. (162.56 cm) (R); Pain 4/10; 12:50 BP 148 / 83 (auto/); dsf 12:51 Pulse Ox 98% ; dsf 12:52 Pulse 90 MON; Pulse Ox 97% ; dsf 13:20 BP 127 / 72 (auto/); dsf 13:20 Pulse 88 MON; Pulse Ox 95% ; dsf 13:50 BP 126 / 70 (auto/); dsf 13:51 Pulse 84 MON; Pulse Ox 93% ; dsf 14:18 Pulse Ox 96% on R/A; dsf 14:20 BP 151 / 80 (auto/); dsf 14:20 Pulse 86 MON; Resp 20; Pulse Ox 96% on R/A; Pain 0/10; dsf 14:50 BP 148 / 73 (auto/); dsf 14:50 Pulse 74 MON; Pulse Ox 97% ; dsf 15:20 BP 136 / 68 (auto/); dsf 15:20 Pulse 80 MON; Pulse Ox 95% ; dsf 15:50 BP 122 / 71 (auto/); dsf 15:50 Pulse 78 MON; Pulse Ox 95% ; dsf 16:20 BP 126 / 73 (auto/); dsf 16:21 Pulse 80 MON; Resp 20; Temp 97.2(O); Pulse Ox 95% on R/A; Pain 0/10; dsf 19:26 BP 116 / 66; Pulse 81; Resp 16; Temp 97.4; Pulse Ox 96% ; Pain 0/10; ko2 12:18 Body Mass Index 24.03 (63.50 kg, 162.56 cm) gr2 Vitals: 12:18 Log In Time: May 28, 2016 at 12:18. gr2 ED Course: 12:17 Patient visited by Mehgan Salomon. gr2 12:17 Eliezer Mendiola is Private Physician. gr2 12:17 Patient moved to Waiting gr2 12:20 Patient visited by Meghan Salomon. gr2 12:20 Patient moved to Pre RCE gr2 12:33 Patient moved to PD2 / 27 srm 12:34 Triage Initiated srm 12:38 The patient / caregiver is instructed regarding the plan of care and ED course. Cardiac dsf monitor on. Pulse ox on. NIBP on. 12:38 EKG done. (by ED staff). Reviewed by Jordyn Ch MD. jrd 12:39 Patient visited by Dillon Oneal PCA. jrd 12:40 Patient moved to 6 dsf 12:42 Report given to Lynsey Joyce rn. srm 13:01 Patient has correct armband on for positive identification. Placed in gown. Bed in low ct3 position. Call light in reach. Side rails up X2. 13:02 Patient visited by Hilary Brar PCA. ct3 13:17 Patient visited by Lore Joyce RN. dsf 13:27 Kristin German DO is PHCP. jo4 13:27 Jordyn Ch MD is Attending Physician. jo4 14:01 Patient visited by Kristin German DO. jo4 14:01 Patient visited by Kristin German DO. jo4 14:23 Patient visited by Lore Joyce RN. dsf 14:23 Cardiac Marker Panel Sent. dsf 14:23 Troponin Sent. dsf 14:32 Patient visited by Jordyn Ch MD. br1 14:34 CBC with Diff Sent. dsf 14:46 Inserted saline lock: 20 gauge in right antecubital area The patient tolerated the dsf procedure well. 14:59 Patient moved to Radiology dsf 14:59 BASIC METABOLIC PROFILE Sent. dsf 15:03 Patient moved to 6 dsf 15:32 Patient visited by Lore Joyce RN. dsf 15:39 Patient moved to OBSERVATION jo4 16:14 Chest, 2 View (pa\E\lat) Returned. EDMS 16:34 [facility] [place] was scanned into [employer] and attached to record. gjb 16:38 Patient visited by Lore Joyce RN. dsf 17:14 Chest, 2 View (pa\E\lat) Returned. EDMS 17:48 Patient visited by Lore Joyce RN. dsf 18:16 Chest, 2 View (pa\E\lat) Returned. EDMS 18:24 Eliezer Mendiola is Referral Physician. jo4 18:29 Gold Villavicencio is Referral Physician. jo4 19:09 Ashwini Gonzalez,FELICIA is Primary Nurse. ko2 19:26 Discontinued lock intact, bleeding controlled, pressure dressing applied, No ko2 redness/swelling at site. No procedures done that require assistance. 02 08:57 EKG-ADULT Returned. EDMS 08:57 ECG WITH READING ER PHYS Returned. EDMS 11:05 T-Sheet-- Draft Copy was scanned into [employer] and attached to record. gb 11:06 ECG/EKG was scanned into [employer] and attached to record. gb 11:06 Radiology Report was scanned into [employer] and attached to record. gb Administered Medications: 05/28 14:29 Not Given (pt took 2 at home provider notified ): Aspirin Chewable Tablet 324 mg PO oncedsf 14:31 Drug: Aspirin 162 mg [aspirin 81 mg chewable tablet (2 tabs)] Route: PO; dsf Order Results: Lab Order: Cardiac Marker Panel; SPEC'M 05/28/16 14:22 Test: CPK CREATINE PHOSPHOKINASE; Value: 74; Range: 26-192; Units: U/L; Status: F Test: CK-MB VALUE MASS; Value: 1.3; Range: 0.0-3.6; Units: NG/ML; Status: F Test: MB/CK RELATIVE INDEX; Value: 1.75; Range: < OR =4; Status: F Test: TROPONIN I; Value: < 0.02; Range: < 0.10; Units: NG/ML; Status: F Test Note: ; DIAGNOSIS CRITERIA MMB ng/ml Relative Index (RI) NON-AMI < or = 5 N/A BALLESTEROS ZONE > 5 < or = 4 AMI > 5 > 4 Lab Order: CBC with Diff; SPEC'M 05/28/16 14:22 Test: WHITE BLOOD COUNT; Value: 5.7; Range: 4.0-10.0; Units: K/mm3; Status: F Test: RED BLOOD COUNT; Value: 4.65; Range: 4.00-5.40; Units: M/mm3; Status: F Test: HEMOGLOBIN; Value: 13.8; Range: 12.0-16.0; Units: g/dl; Status: F Test: HEMATOCRIT; Value: 42.8; Range: 36.0-47.0; Units: %; Status: F Test: MEAN CORPUSCULAR VOLUME; Value: 92.1; Range: 80.0-96.0; Units: fl; Status: F Test: MEAN CORPUSCULAR HEMOGLOBIN; Value: 29.7; Range: 27.0-33.0; Units: pg; Status: F Test: MEAN CORPUSCULAR HGB CONC; Value: 32.3; Range: 32.0-36.5; Units: g/dl; Status: F Test: RED CELL DISTRIBUTION WIDTH; Value: 12.2; Range: 11.5-14.5; Units: %; Status: F Test: PLATELET COUNT, AUTOMATED; Value: 302; Range: 150-450; Units: k/mm3; Status: F Test: NEUTROPHILS %; Value: 61.2; Range: 36.0-66.0; Units: %; Status: F Test: LYMPH %; Value: 23.2; Range: 24.0-44.0; Abnormal: Below low normal; Units: %; Status: F Test: MONO %; Value: 8.6; Range: 0.0-5.0; Abnormal: Above high normal; Units: %; Status: F Test: EOS %; Value: 2.2; Range: 0.0-3.0; Units: %; Status: F Test: BASO %; Value: 0.7; Range: 0.0-1.0; Units: %; Status: F Test: LARGE UNSTAINED CELL %; Value: 4.0; Range: 0.0-4.0; Units: %; Status: F Test: NEUTROPHILS #; Value: 3.5; Range: 1.8-7.7; Units: K/mm3; Status: F Test: LYMPH #; Value: 1.3; Range: 1.5-4.5; Abnormal: Below low normal; Units: K/mm3; Status: F Test: MONO #; Value: 0.5; Range: 0.0-0.8; Units: K/mm3; Status: F Test: EOS #; Value: 0.1; Range: 0.0-0.50; Units: K/mm3; Status: F Test: BASO #; Value: 0.0; Range: 0.0-0.2; Units: K/mm3; Status: F Test: LARGE UNSTAINED CELL #; Value: 0.2; Range: 0.0-0.4; Units: K/mm3; Status: F Lab Order: BASIC METABOLIC PROFILE; SPEC'M 05/28/16 14:22 Test: GLUCOSE, FASTING; Value: 100; Range: 80-110; Units: MG/DL; Status: F Test: BLOOD UREA NITROGEN; Value: 14; Range: 7-18; Units: MG/DL; Status: F Test: CREATININE FOR GFR; Value: 0.67; Range: 0.55-1.02; Units: MG/DL; Status: F Test: SODIUM LEVEL; Range: 136-145; Units: MEQ/L; Status: I Test: POTASSIUM SERUM; Range: 3.5-5.1; Units: MEQ/L; Status: I Test: CHLORIDE LEVEL; Range: 98-107; Units: MEQ/L; Status: I Test: CARBON DIOXIDE LEVEL; Range: 21-32; Units: MEQ/L; Status: I Test: ANION GAP; Range: 8-16; Units: MEQ/L; Status: I Test: CALCIUM LEVEL; Range: 8.8-10.2; Units: MG/DL; Status: I Test: GLOMERULAR FILTRATION RATE; Value: > 60.0; Range: >45; Status: F Test: SODIUM LEVEL; Value: 144; Range: 136-145; Units: MEQ/L; Status: F Test: POTASSIUM SERUM; Value: 4.3; Range: 3.5-5.1; Units: MEQ/L; Status: F Test: CHLORIDE LEVEL; Value: 110; Range: 98-107; Abnormal: Above high normal; Units: MEQ/L; Status: F Test: CARBON DIOXIDE LEVEL; Value: 27; Range: 21-32; Units: MEQ/L; Status: F Test: ANION GAP; Value: 7; Range: 8-16; Abnormal: Below low normal; Units: MEQ/L; Status: F Test: CALCIUM LEVEL; Value: 8.7; Range: 8.8-10.2; Abnormal: Below low normal; Units: MG/DL; Status: F Test Note: ; Units are mL/min/1.73 m2 Chronic Kidney Disease Staging per NKF: Stage I & II GFR >=60 Normal to Mildly Decreased Stage III GFR 30-59 Moderately Decreased Stage IV GFR 15-29 Severely Decreased Stage V GFR <15 Very Little GFR Left ESRD GFR <15 on SEWING MACHINE OPERATOR PLASTIC ZIPPER Lab Order: CARDIAC MARKER PANEL; SPEC'M 05/28/16 17:41 Test: CPK CREATINE PHOSPHOKINASE; Value: 76; Range: 26-192; Units: U/L; Status: F Test: CK-MB VALUE MASS; Value: 1.2; Range: 0.0-3.6; Units: NG/ML; Status: F Test: MB/CK RELATIVE INDEX; Value: 1.57; Range: < OR =4; Status: F Test: TROPONIN I; Value: < 0.02; Range: < 0.10; Units: NG/ML; Status: F Test Note: ; DIAGNOSIS CRITERIA MMB ng/ml Relative Index (RI) NON-AMI < or = 5 N/A BALLESTEROS ZONE > 5 < or = 4 AMI > 5 > 4 Radiology Order: EKG-ADULT Test: EKG-ADULT REASON FOR EXAMINATION: jaw pain; Stationary ECG Study; [facility] ED; ; Test Date: 2016-05-28; Pat Name: HIEN SANCHEZ Department:; Room: -; Gender: F Airline Manager: osmin; : 1955 Requested By: JORDYN Wilson; Order Number: [id number] Reading MD: Caity Oliver; Measurements; Intervals [place]; Rate: 87 P: 56; CT: 128 QRS: -3; QRSD: 92 T: 24; QT: 353; QTc: 427; Interpretive Statements; SINUS RHYTHM; MINIMAL ST DEPRESSION; INCREASED RATE 05/23/14; Electronically Signed On 05-29-2016 8:20:29 EST by Caity Oliver; Radiology Order: Chest, 2 View (pa\E\lat) Test: Chest, 2 View (pa\E\lat) REASON FOR EXAMINATION: Nausea; TWO VIEW CHEST:; ; Two views of the chest are performed. There is no acute infiltrate or pulmonary; edema. The heart is normal in size. There is mild calcification of the thoracic; aorta. The mediastinal silhouette is unchanged. Metallic plate and screws are; seen in the lower cervical spine. There is no compression deformity of thoracic; vertebral bodies.; ; IMPRESSION:; ; No acute pulmonary disease.; ; ; Signed by; Jurgen Ballesteros MD 05/28/2016 05:13 P; Radiology Order: ECG WITH READING ER PHYS Test: ECG WITH READING ER PHYS REASON FOR EXAMINATION: JAW PAIN (REPEAT EKG AT 5:30); Stationary ECG Study; [facility] ED; ; Test Date: 2016-05-28; Pat Name: [facility] Department:; Room: -; Gender: F Airline Manager: osmin; : 1955 Requested By: KRISTIN GRACIA; Order Number: [id number] Reading MD: Caity Oliver; Measurements; Intervals [place]; Rate: 79 P: 44; CT: 125 QRS: -10; QRSD: 116 T: 2; QT: 379; QTc: 436; Interpretive Statements; SINUS RHYTHM; MODERATE INTRAVENTRICULAR CONDUCTION DELAY; MINIMAL VOLTAGE CRITERIA FOR LVH, CONSIDER NORMAL VARIANT; MINIMAL ST DEPRESSION; DECREASED RATE 05/28/16 12:39; Electronically Signed On 05-29-2016 8:37:04 EST by Caity Oliver; Outcome: 18:24 Discharge ordered by Provider. jo4 19:27 Discharge Assessment: Patient awake, alert and oriented x 3. No cognitive and/or ko2 functional deficits noted. Patient verbalized understanding of disposition instructions. patient administered narcotics - no. The following High Risk Discharge criteria are identified: None. Discharged to home ambulatory. Condition: stable. Discharge instructions given to patient, Instructed on discharge instructions, follow up and referral plans. Demonstrated understanding of instructions, Pt was receptive of discharge instructions/ teaching. No special radiology studies were completed. Property sent home with patient. 19:27 Patient left the ED. ko2 Signatures: Dispatcher [employer] EDMS Mariana Shaver, RN RN [facility] Jaida Johnson, Reg Reg Jordyn Ch MD MD br1 Hilary Brar, SHAPER SETTER SHAPER SETTER ct3 Lore Joyce,RN RN dsf Meghan Salomon gr2 Ashwini Gonzalez RN RN ko2 Dillon Oneal, SHAPER SETTER SHAPER SETTER Adriana Arreola Jane, DO DO jo4 Corrections: (The following items were deleted from the chart) 14:58 14:34 BASIC METABOLIC PROFILE+LAB sent. dsf EDMS 16:37 16:21 Pulse 80bpm; Monitor; Pulse Ox 95%; dsf dsf Chart Complete MTDD
== END 2016-05-28 19:27 | disposition home or self-care (01) ==
LOC: M ED 12:16
DX: R11.2 Nausea with vomiting, unspecified (principal); M54.9 Dorsalgia, unspecified; R68.84 Jaw pain; E07.9 Disorder of thyroid, unspecified; Z87.891 Personal history of nicotine dependence; Z79.899 Other long term (current) drug therapy; Z88.0 Allergy status to penicillin; Z88.5 Allergy status to narcotic agent

== ENCOUNTER → 2016-06-05 | Outpatient (CLI) | payer BC, OTHER ==
--- NOTE | 2016-06-05 10:36 | REPMRS ---
Patient History The patient states she has not had a clinical breast exam in over a year. Patient is postmenopausal. Family history of breast cancer in maternal aunt at age 50 or over and breast cancer in maternal cousin under age 50. Digital Woman Screen Mammo: June 05, 2016 - Exam #: [id number] Bilateral CC and MLO view(s) were taken. Technologist: Mariella Sparks, Technologist Prior study comparison: June 23, 2014, digital woman screen mammo performed at [facility] to [facility]. April 02, 2011, bilateral digital mammo screening bilat performed at [facility]. July 27, 2009, bilateral digital mammo screening bilat, performed at [facility]. FINDINGS: There are scattered fibroglandular densities. There has been no change in the appearance of the mammogram from the prior studies. There is a mild amount of scattered fibroglandular density which is fairly symmetric. There is no interval development of dominant mass, architectural distortion, or clustered microcalcification suggestive of malignancy. ASSESSMENT: BI-RADS/ACR category 1 mammogram. Negative. Recommendation Routine screening mammogram in 1 year (for women over age 40). This mammogram was interpreted with the aid of an FDA-approved computer-aided dectection system. Electronically Signed By: Jagjit Mathew MD 06/05/16 [id number]
--- NOTE | 2016-06-06 11:02 | DEXA ---
AP SPINE L1 - L4 0.990 -1.6 -0.3 LT FEMUR TOTAL 0.780 -1.8 -0.8 RT FEMUR TOTAL 0.813 -1.5 -0.5 TOTAL BODY TOTAL OTHER DUAL FEMUR FRAX* ASSESSMENT Risk factors: None. 10 year probability of fracture Major osteoporotic fracture 10.7 % Hip fracture 1.6 % COMMENTS: There is low bone density of the spine and hips. The density of the spine has decreased 6.3% since 03/2011. The density of the left hip has decreased 2.3% since 03/2011. The density of the right hip has decreased 2.5% since 03/2011. FOLLOW-UP: Recommendation for the next bone density exam: 2 years. CLAUDE
== END ==
LOC: M WHC 09:00
PROVIDERS: ATTEND Family Medicine
DX: Z12.31 Encounter for screening mammogram for malignant neoplasm of breast (principal); Z78.0 Asymptomatic menopausal state
CPT/HCPCS: 77080; G0202

== ENCOUNTER → 2016-06-17 | Outpatient (CLI) | payer BC, OTHER | LOC: M LAB 09:09 | PROVIDERS: ATTEND Family Medicine | DX: E78.5 Hyperlipidemia, unspecified (principal) ==

== ENCOUNTER 2017-01-10 01:28 | Emergency (ER) | payer BC, OTHER ==
[~2017-01-10] VITALS: Ht 162.6 cm; Wt 64.0 kg
[2017-01-10 01:50] VITALS: BP 153/76
[2017-01-10] MEDS ORDERED: LEVO125T4 PO (01:55)
[2017-01-10] MEDS ORDERED: NAPR500T PO (03:28)
[2017-01-10] MEDS ORDERED: OXYCODONE/APAP 5MG/325MG(BULK FOR ED) 1 TABLET PO ONE (03:30)
== END 2017-01-10 03:51 | disposition home or self-care (01) ==
LOC: M ED 01:28
DX: M54.12 Radiculopathy, cervical region (principal)

== ENCOUNTER → 2017-03-07 | Outpatient (CLI) | payer BC, OTHER ==
[~2017-03-07] MED LIST: LEVO125T4 PO; NAPR500T PO
--- NOTE | 2017-03-07 12:38 | REP ---
LUMBAR SPINE, FIVE VIEWS: History Back pain. COMPARISON: 01/22/2013 There is no acute fracture or subluxation. The L4-5 intervertebral disc is decreased in height consistent with disc degeneration. There is narrowing of the L5-S1 facet joints with associated sclerosis. IMPRESSION: Degenerative change as described above. Signed by Armen Goel MD 03/07/2017 12:45 P
--- NOTE | 2017-03-07 14:15 | REP ---
PELVIS LEFT HIP: THREE VIEWS. HISTORY: Back pain, sciatica. FINDINGS: AP view of the pelvis shows an intact bony pelvic ring. Femoral heads are smooth and round, and hip joint space is preserved. There is degenerative sclerosis and spurring at the symphysis pubis. No erosive changes seen. 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 Otherwise, negative AP pelvis, left hip views. Signed by Enrique Mathew MD 03/07/2017 04:50 P
== END ==
LOC: M RAD 11:13
PROVIDERS: ATTEND Family Medicine
DX: M54.30 Sciatica, unspecified side (principal); M16.12 Unilateral primary osteoarthritis, left hip

== ENCOUNTER → 2017-08-11 | Outpatient (CLI) | payer BC, OTHER | LOC: M RAD 11:30 | DX: R05 Cough (principal) | CPT/HCPCS: 71046 ==

== ENCOUNTER → 2017-08-19 | Outpatient (CLI) | payer BC, OTHER ==
[2017-08-19 10:11] LABS: BASO # 0.1 10^3/uL (0.0-0.2); EOS # 0.3 10^3/uL (0.0-0.50); HEMATOCRIT 45.1 % (36.0-47.0); HEMOGLOBIN 14.6 g/dl (12.0-15.5); IMMATURE GRANULOCYTE % 0.6 % (0-3.0); LYMPH # 2.4 10^3/uL (1.5-4.5); LYMPH % 28.2 % (24.0-44.0); MEAN CORPUSCULAR HEMOGLOBIN 30.2 pg (27.0-33.0); MEAN CORPUSCULAR HGB CONC 32.4 g/dl (32.0-36.5); MEAN CORPUSCULAR VOLUME 93.2 fl (80.0-96.0); MONO # 0.6 10^3/uL (0.0-0.8); MONO % 7.7 % (0.0-5.0); NEUTROPHILS % 59.5 % (36.0-66.0); PLATELET COUNT, AUTOMATED 400 10^3/uL (150-450); RED BLOOD COUNT 4.84 10^6/uL (4.00-5.40); RED CELL DISTRIBUTION WIDTH 13.4 % (11.5-14.5); WHITE BLOOD COUNT 8.3 10^3/uL (4.0-10.0)
[2017-08-19 11:36] LABS: ALBUMIN 3.9 GM/DL (3.2-5.2); ALBUMIN/GLOBULIN RATIO 1.15 (1.00-1.93); ALKALINE PHOSPHATASE 114 U/L (45-117); ALT/SGPT 33 U/L (12-78); ANION GAP 6 MEQ/L (8-16); AST/SGOT 24 U/L (7-37); BILIRUBIN,TOTAL 0.4 MG/DL (0.2-1.0); BLOOD UREA NITROGEN 15 MG/DL (7-18); CALCIUM LEVEL 8.7 MG/DL (8.8-10.2); CARBON DIOXIDE LEVEL 28 MEQ/L (21-32); CHLORIDE LEVEL 109 MEQ/L (98-107); CHOLESTEROL LEVEL 241 MG/DL (<200); CHOLESTEROL RISK RATIO 3.492 (<5); CREATININE FOR GFR 0.78 MG/DL (0.55-1.30); GLOMERULAR FILTRATION RATE > 60.0 (>45); GLUCOSE, FASTING 95 MG/DL (70-100); HDL CHOLESTEROL 69 MG/DL (>40); LDL CHOLESTEROL 153.2 MG/DL (<100); NON-HDL-C 172 MG/DL; POTASSIUM SERUM 4.7 MEQ/L (3.5-5.1); SODIUM LEVEL 143 MEQ/L (136-145); THYROID STIMULATING HORMONE 0.427 uIU/ML (0.358-3.740); TOTAL PROTEIN 7.3 GM/DL (6.4-8.2); TRIGLYCERIDES LEVEL 94 MG/DL (<150)
[2017-08-20 12:05] LABS: HEPATITIS C VIRUS ABY INDEX 0.1 INDEX (<0.8)
[2017-08-20 12:06] LABS: HIV 1&2 SCREEN CENTAUR NEGATIVE (NEGATIVE)
== END ==
LOC: M RAD 09:08
DX: Z13.21 Encounter for screening for nutritional disorder (principal); E03.9 Hypothyroidism, unspecified; Z13.220 Encounter for screening for lipoid disorders
CPT/HCPCS: 77067

== ENCOUNTER 2017-08-23 08:56 | Emergency (ER) | payer BC, OTHER ==
[2017-08-23 10:46] LABS: CPK CREATINE PHOSPHOKINASE 110 U/L (26-192); FREE T4 1.26 NG/DL (0.76-1.46); MAGNESIUM LEVEL 2.1 MG/DL (1.8-2.4); TROPONIN I < 0.02 NG/ML (< 0.10)
[2017-08-23 10:52] LABS: CK-MB VALUE MASS 1.5 NG/ML (<3.6); MB/CK RELATIVE INDEX 1.36 (< OR =4); THYROID STIMULATING HORMONE 0.638 uIU/ML (0.358-3.740)
== END 2017-08-23 11:27 | disposition home or self-care (01) ==
LOC: M ED 08:56
DX: R00.2 Palpitations (principal); E03.9 Hypothyroidism, unspecified; Z82.49 Family history of ischemic heart disease and other diseases of the circulatory system; Z88.0 Allergy status to penicillin; Z88.5 Allergy status to narcotic agent; Z79.899 Other long term (current) drug therapy
CPT/HCPCS: 93005

== ENCOUNTER → 2017-09-09 | Outpatient (REF) | payer BC, OTHER | LOC: M LAB REF 12:38 | DX: Z12.4 Encounter for screening for malignant neoplasm of cervix (principal) | CPT/HCPCS: G0123 ==

== ENCOUNTER → 2017-11-05 | Outpatient (REF) | payer OTHER ==
[2017-11-07 00:12] LABS: Lyme Disease IgG/IgM Antibodie <0.91 ISR (0.00-0.90); Lyme Disease IgM Ab Quantitati <0.80 index (0.00-0.79)
== END ==
LOC: M LAB REF 13:37
DX: H93.13 Tinnitus, bilateral (principal)

== ENCOUNTER → 2017-12-03 | Outpatient (CLI) | payer BC, OTHER | LOC: M WUC 13:38 | DX: R05 Cough (principal); Z98.1 Arthrodesis status; I70.0 Atherosclerosis of aorta | CPT/HCPCS: 71046 ==

== ENCOUNTER 2018-04-24 09:12 | Day surgery (SDC) | payer BC, OTHER ==
[~2018-04-24] VITALS: Ht 162.6 cm; Wt 62.5 kg
[~2018-04-24 09:12] MED LIST changes: +CALC1TAB63 PO; +LEVO137T2 PO; +LIDOCAINE 2% MDV 20 ML VIAL As Ordered ONE; +MULT1TAB10 PO; +NAPR-50 PO; -NAPR500T PO; +OMEP40CA2 PO; +PROPOFOL 200 MG/20 ML VIAL As Ordered ONE; +SING10TA32 PO; +VITA-112 PO; +VITA400C7 PO; +VITA500T53 PO
[2018-04-24] MEDS ORDERED: PROPOFOL 200 MG/20 ML VIAL As Ordered ONE (10:44)
--- NOTE | 2018-04-24 11:11 | ROOR ---
Patient Name: Consuelo Nova Procedure Date: 04/24/2018 10:13 AM Date of : 1955 Age: 62 Room: [facility] Gender: Female Note Status: Finalized Procedure: Upper GI endoscopy Indications: Heartburn, Suspected gastro-esophageal reflux disease Providers: Maurice Fernandez MD Referring MD: Chyna Domingo DO Requesting Provider: Medicines: Monitored Anesthesia Care Complications: No immediate complications. Procedure: Pre-Anesthesia Assessment: - Prior to the procedure, a History and Physical was performed, and patient medications and allergies were reviewed. The patient is competent. The risks and benefits of the procedure and the sedation options and risks were discussed with the patient. All questions were answered and informed consent was obtained. Patient identification and proposed procedure were verified by the physician, the nurse and the anesthesiologist in the procedure room. Mental Status Examination: alert and oriented. Airway Examination: normal oropharyngeal airway and neck mobility. Respiratory Examination: clear to auscultation. CV Examination: normal. Prophylactic Antibiotics: The patient does not require prophylactic antibiotics. Prior Anticoagulants: The patient has taken no previous anticoagulant or antiplatelet agents. ASA Grade Assessment: III - A patient with severe systemic disease. After reviewing the risks and benefits, the patient was deemed in satisfactory condition to undergo the procedure. The anesthesia plan was to use monitored anesthesia care (MAC). Immediately prior to administration of medications, the patient was re-assessed for adequacy to receive sedatives. The heart rate, respiratory rate, oxygen saturations, blood pressure, adequacy of pulmonary ventilation, and response to care were monitored throughout the procedure. The physical status of the patient was re-assessed after the procedure. The Endoscope was introduced through the mouth, and advanced to the second part of duodenum. The upper GI endoscopy was accomplished without difficulty. The patient tolerated the procedure well. Findings: The Z-line was regular and was found 34 cm from the incisors. Biopsies were taken with a cold forceps for histology. Verification of patient identification for the specimen was done by the physician and nurse using the patient's name, date and medical record number. Estimated blood loss was minimal. LA Grade A (one or more mucosal breaks less than 5 mm, not extending between tops of 2 mucosal folds) esophagitis with no bleeding was found at the gastroesophageal junction. A medium-sized hiatal hernia was present. Diffuse mild inflammation characterized by erythema and granularity was found in the gastric antrum. Biopsies were taken with a cold forceps for Helicobacter pylori testing. The duodenal bulb and second portion of the duodenum were normal. Impression: - Z-line regular, 34 cm from the incisors. Biopsied. - LA Grade A reflux esophagitis. - Medium-sized hiatal hernia. - Gastritis. Biopsied. - Normal duodenal bulb and second portion of the duodenum. Recommendation: - Patient has a contact number available for emergencies. The signs and symptoms of potential delayed complications were discussed with the patient. Return to normal activities tomorrow. Written discharge instructions were provided to the patient. - Resume previous diet. - Continue present medications. - Await pathology results. - Follow an antireflux regimen. - Based on the biopsy results you will receive a phone call from GI clinic in 2-3 weeks to review the pathology results AND/OR your results will be faxed to your Primary care physician. - Return to primary care physician. Maurice Fernandez MD Maurice Fernandez MD 04/24/2018 11:11:20 AM This report has been signed electronically. Number of Addenda: 0 Note Initiated On: 04/24/2018 10:13 AM Estimated Blood Loss: Estimated blood loss was minimal.
--- NOTE | 2018-04-24 11:14 | ROOR ---
Patient Name: Consuelo Nova Procedure Date: 04/24/2018 10:14 AM Date of : 1955 Age: 62 Room: [facility] Gender: Female Note Status: Finalized Procedure: Colonoscopy Indications: Screening for colorectal malignant neoplasm Providers: Maurice Fernandez MD Referring MD: Chyna Domingo DO Requesting Provider: Medicines: Monitored Anesthesia Care Complications: No immediate complications. Procedure: Pre-Anesthesia Assessment: - Prior to the procedure, a History and Physical was performed, and patient medications and allergies were reviewed. The patient is competent. The risks and benefits of the procedure and the sedation options and risks were discussed with the patient. All questions were answered and informed consent was obtained. Patient identification and proposed procedure were verified by the physician, the nurse and the anesthesiologist in the procedure room. Airway Examination: normal oropharyngeal airway and neck mobility. Respiratory Examination: clear to auscultation. CV Examination: normal. Prophylactic Antibiotics: The patient does not require prophylactic antibiotics. Prior Anticoagulants: The patient has taken no previous anticoagulant or antiplatelet agents. ASA Grade Assessment: II - A patient with mild systemic disease. After reviewing the risks and benefits, the patient was deemed in satisfactory condition to undergo the procedure. The anesthesia plan was to use monitored anesthesia care (MAC). Immediately prior to administration of medications, the patient was re-assessed for adequacy to receive sedatives. The heart rate, respiratory rate, oxygen saturations, blood pressure, adequacy of pulmonary ventilation, and response to care were monitored throughout the procedure. The physical status of the patient was re-assessed after the procedure. The Colonoscope was introduced through the anus and advanced to the terminal ileum, with identification of the appendiceal orifice and IC valve. The colonoscopy was performed without difficulty. The patient tolerated the procedure well. The quality of the bowel preparation was good. The terminal ileum, ileocecal valve, appendiceal orifice, and rectum were photographed. Scope insertion time was 5 minutes. Scope withdrawal time was 10 minutes. The total duration of the procedure was 15 minutes. Findings: The perianal and digital rectal examinations were normal. The terminal ileum appeared normal. Non-bleeding external and internal hemorrhoids were found during retroflexion. The hemorrhoids were small. No other significant abnormalities were identified in a careful examination of the remainder of the colon. Impression: - The examined portion of the ileum was normal. - Non-bleeding external and internal hemorrhoids. - No specimens collected. Recommendation: - Patient has a contact number available for emergencies. The signs and symptoms of potential delayed complications were discussed with the patient. Return to normal activities tomorrow. Written discharge instructions were provided to the patient. - High fiber diet. - Continue present medications. - Repeat colonoscopy in 10 years for screening purposes. - Return to GI clinic in 10 years. - Return to primary care physician. Maurice Fernandez MD Maurice Fernandez MD 04/24/2018 11:14:18 AM This report has been signed electronically. Number of Addenda: 0 Note Initiated On: 04/24/2018 10:14 AM Estimated Blood Loss: Estimated blood loss was minimal.
[2018-04-24 11:20] VITALS: BP 115/59
== END 2018-04-24 11:30 | disposition home or self-care (01) ==
LOC: M OPP 09:12
PROVIDERS: ATTEND Internal Medicine Gastroenterology
DX: K64.8 Other hemorrhoids (principal); R12 Heartburn; K44.9 Diaphragmatic hernia without obstruction or gangrene; K20.9 Esophagitis, unspecified; K29.70 Gastritis, unspecified, without bleeding; Z12.11 Encounter for screening for malignant neoplasm of colon

== ENCOUNTER 2018-08-12 06:27 | Day surgery (SDC) | payer BC, OTHER ==
[~2018-08-12] VITALS: Ht 162.6 cm; Wt 64.9 kg
[~2018-08-12 06:27] MED LIST changes: +ACETAMINOPHEN 325 MG TAB PO PRN; -LIDOCAINE 2% MDV 20 ML VIAL As Ordered ONE; +MULTCAP PO; -NAPR-50 PO; +NAPR-837 PO; -PROPOFOL 200 MG/20 ML VIAL As Ordered ONE; +VITA400C53 PO; +VITA500T17 PO; -VITA500T53 PO
[2018-08-12] MEDS ORDERED: SODIUM BICARBONATE 8.4% INJ 50MEQ 50 ML VIAL As Ordered ONE (06:41)
[2018-08-12] MEDS ORDERED: LIDOCAINE 2% W/EPIN INJ 20ML **PRES FREE As Ordered ONE (06:41)
[2018-08-12] MEDS ORDERED: TOBRADEX OPHTH OINT 3.5 GM As Ordered ONE (06:41)
[2018-08-12] MEDS ORDERED: POVIDONE-IODINE 5% OPHTH PREP SOL 30ML As Ordered ONE (06:47)
[2018-08-12] MEDS ORDERED: LIDOCAINE 3.5 % 1ML OPHTH TOPICAL GEL OU ONE (07:00)
[2018-08-12] MEDS ORDERED: fentaNYL 100 MCG/2 ML INJECTION (J3010) As Ordered ONE (07:41)
[2018-08-12] MEDS ORDERED: MIDAZOLAM INJ 2 MG/2 ML VIAL (J2250) As Ordered ONE (07:41)
[2018-08-12] MEDS ORDERED: PROPOFOL 200 MG/20 ML VIAL As Ordered ONE (09:47)
[2018-08-12 10:00] VITALS: BP 161/76
[2018-08-12] MEDS ORDERED: TRIMETHOBENZAMIDE 300 MG CAP PO PRN (10:00)
[2018-08-12] MEDS ORDERED: ONDANSETRON 4MG/2ML VIAL (J2405) IV PRN (10:00)
--- NOTE | 2018-08-14 09:01 | RO ---
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 PROCEDURE: SURGEON: Dr. Rosalinda Larios WASHHOUSE WORKER: None. ANESTHESIA: COMPLICATIONS: None. DESCRIPTION OF PROCEDURE: The patient was brought to the operating room and laid in supine position. The eye was prepped and draped in a sterile fashion for ophthalmic surgery, following which, both upper lids were marked with the help of a sterile marker along the lines of proposed skin excision. Both upper lids were then infiltrated with 2% lidocaine with 1:100,000 epinephrine. After waiting for 10 minutes and some massage, attention was first diverted to the right eye, right upper lid. With the help of the electrocautery the skin was excised. Hemostasis was obtained as necessary. Deeper dissection was carried out to isolate the medial and lateral fat pads, which were excised and the stump was cauterized. The dehisced levator aponeurosis was then identified and reattached using interrupted #6-0 nylon sutures. Lid position was noted to be satisfactory. The wound was closed using #6-0 nylon sutures in a running fashion. Exactly the same procedure was repeated for the left upper lid. Following the procedure, ice was applied. The patient was returned to the recovery room in stable condition with TobraDex ointment.
== END 2018-08-12 10:15 | disposition home or self-care (01) ==
LOC: M SDC 06:27
PROVIDERS: ATTEND Ophthalmology
DX: H02.403 Unspecified ptosis of bilateral eyelids (principal); H02.834 Dermatochalasis of left upper eyelid; K21.9 Gastro-esophageal reflux disease without esophagitis; E03.9 Hypothyroidism, unspecified; E78.00 Pure hypercholesterolemia, unspecified; E89.0 Postprocedural hypothyroidism; E04.1 Nontoxic single thyroid nodule; M12.9 Arthropathy, unspecified; Z88.0 Allergy status to penicillin; Z88.5 Allergy status to narcotic agent; Z79.899 Other long term (current) drug therapy; Z90.710 Acquired absence of both cervix and uterus; Z92.3 Personal history of irradiation
CPT/HCPCS: 15823; 88302; J2250; J3010

== ENCOUNTER → 2019-12-13 | Outpatient (CLI) | payer MEDICARE, BC ==
[~2019-12-13] MED LIST changes: -ACETAMINOPHEN 325 MG TAB PO PRN; -OMEP40CA2 PO; +OMEP40CA97 PO
--- NOTE | 2019-12-29 08:40 | REPMRS ---
Patient History The patient states she had a clinical breast exam in October 2019. Patient is postmenopausal. Family history of breast cancer at age 50 or over in maternal aunt, breast cancer under age 50 in maternal cousin. Digital Woman Screen Mammo: December 13, 2019 - Exam #: [id number] Bilateral CC and MLO view(s) were taken. Technologist: Amanda Penaloza Technologist Prior study comparison: August 19, 2017, bilateral digital mammo screening bilat, performed at [facility]. June 05, 2016, digital woman screen mammo performed at [facility]. June 23, 2014, digital woman screen mammo performed at [facility]. FINDINGS: There are scattered fibroglandular densities. The Volpara volumetric breast density category is:B. There has been no change in the appearance of the mammogram from the prior studies. There is a mild amount of scattered fibroglandular density which is fairly symmetric. There is no interval development of dominant mass, architectural distortion, or grouped microcalcification suggestive of malignancy. 3-D tomosynthesis shows no additional findings. Assessment: BI-RADS/ACR category 1 mammogram. Negative Mammogram. Recommendation Routine screening mammogram of both breasts in 1 year (for women over age 40). This patient's Lifetime Breast Cancer Risk is estimated at 5.9 %. This mammogram was interpreted with the aid of an FDA-approved computer-aided dectection system. Electronically Signed By: Jagjit Mathew MD 12/29/19 [id number]
== END ==
LOC: M WHC 17:22
PROVIDERS: ATTEND Internal Medicine
DX: Z12.31 Encounter for screening mammogram for malignant neoplasm of breast (principal); Z78.0 Asymptomatic menopausal state

== ENCOUNTER → 2020-02-14 | Outpatient (CLI) | payer MEDICARE, BC, OTHER ==
--- NOTE | 2020-02-14 11:45 | REP ---
INDICATION: LOW BACK PAIN COMPARISON: 01/22/2013, 03/07/2017 TECHNIQUE: AP, lateral, bilateral oblique, and coned-down views. FINDINGS: Alignment and lordosis is maintained. The vertebral bodies including transverse process and spinous processes are intact and normal. There is no evidence for acute fracture / compression injury or subluxation. No evidence for spondylolysis or spondylolisthesis. Mild endplate sclerosis and minimal disc space narrowing at L4-5 and L5-S1 with mild associated facet arthropathy noted. IMPRESSION: Mild degenerative changes at the L4-5 and L5-S1 levels. <Electronically signed by Ariel Trevino > 02/14/20 [id number]
== END ==
LOC: M WUC 11:07
PROVIDERS: ATTEND Internal Medicine
DX: M51.36 Other intervertebral disc degeneration, lumbar region (principal); M51.37 Other intervertebral disc degeneration, lumbosacral region

== ENCOUNTER → 2020-02-17 | Outpatient (CLI) | payer MEDICARE, BC ==
--- NOTE | 2020-02-23 13:51 | DEXA ---
AP SPINE L1 - L4 0.965 -1.9 -0.3 LT FEMUR TOTAL 0.756 -2.0 -0.7 LT NECK 0.733 -2.2 -0.7 RT FEMUR TOTAL 0.772 -1.9 -0.6 RT NECK 0.737 -2.2 -0.7 TOTAL BODY TOTAL OTHER COMMENTS: There is low bone density of the spine and hips. The decreased density of the spine does represent a significant change. The decreased density of the left hip does represent significant change. The decreased density of the right hip does represent significant change. The density of the spine has decreased 8.7% since the initial exam on 04/02/2011. The decreased 2.5% since the most recent exam on 06/05/2016. The density of the left hip has decreased 5.3% since the initial exam on 04/02/2011. The density of the left hip has decreased 3.1% since the most recent exam on 06/05/2016. The density of the right hip has decreased 7.4% since the initial exam on 04/02/2011. The density of the right hip has decreased 5.0% since the most recent exam on 06/05/2016. FOLLOW-UP: Recommendation for the next bone density exam: 2 years. CLAUDE
== END ==
LOC: M WHC 09:59
PROVIDERS: ATTEND Internal Medicine
DX: M85.80 Other specified disorders of bone density and structure, unspecified site (principal)

== ENCOUNTER → 2020-07-27 | Outpatient (CLI) | payer MEDICARE, BC, OTHER ==
[~2020-07-27] MED LIST changes: +D31000TA2 PO; +MULT-40 PO; +SM HTAB3 PO
== END ==
LOC: M LABSMTC 11:19
PROVIDERS: ATTEND Anesthesiology
DX: Z01.818 Encounter for other preprocedural examination (principal); Z20.822 Contact with and (suspected) exposure to COVID-19

== ENCOUNTER 2020-08-01 10:36 | Day surgery (SDC) | payer MEDICARE, BC, OTHER ==
[~2020-08-01] VITALS: Ht 162.6 cm; Wt 63.5 kg
[~2020-08-01 10:36] MED LIST changes: +LIDOCAINE 2% 100MG/5ML SDV (FOR ANES.) As Ordered ONE; +NS 1,000 ML IV ONE; +fentaNYL 100 MCG/2 ML INJECTION (J3010) As Ordered ONE; +propofoL 200 MG/20 ML VIAL As Ordered ONE
[2020-08-01] MEDS ORDERED: propofoL 200 MG/20 ML VIAL As Ordered ONE (12:17)
--- NOTE | 2020-08-01 12:36 | ROOR ---
Patient Name: Consuelo Nova Procedure Date: 08/01/2020 12:02 PM Date of : 1955 Age: 64 Room: [facility] Gender: Female Note Status: Finalized Procedure: Upper GI endoscopy Indications: Follow-up of Bradley's esophagus, Surveillance for malignancy due to personal history of Bradley's esophagus Providers: Maurice Fernandez MD Referring MD: Chyna Domingo DO Requesting Provider: Medicines: Monitored Anesthesia Care Complications: No immediate complications. Procedure: Pre-Anesthesia Assessment: - Prior to the procedure, a History and Physical was performed, and patient medications and allergies were reviewed. The patient is competent. The risks and benefits of the procedure and the sedation options and risks were discussed with the patient. All questions were answered and informed consent was obtained. Patient identification and proposed procedure were verified by the physician, the nurse and the anesthesiologist in the procedure room. Mental Status Examination: normal. Airway Examination: normal oropharyngeal airway and neck mobility. Respiratory Examination: clear to auscultation. CV Examination: normal. Prophylactic Antibiotics: The patient does not require prophylactic antibiotics. Prior Anticoagulants: The patient has taken no previous anticoagulant or antiplatelet agents. ASA Grade Assessment: II - A patient with mild systemic disease. After reviewing the risks and benefits, the patient was deemed in satisfactory condition to undergo the procedure. The anesthesia plan was to use monitored anesthesia care (MAC). Immediately prior to administration of medications, the patient was re-assessed for adequacy to receive sedatives. The heart rate, respiratory rate, oxygen saturations, blood pressure, adequacy of pulmonary ventilation, and response to care were monitored throughout the procedure. The physical status of the patient was re-assessed after the procedure. The Endoscope was introduced through the mouth, and advanced to the second part of duodenum. The upper GI endoscopy was accomplished without difficulty. The patient tolerated the procedure well. Findings: The Z-line was regular and was found at the gastroesophageal junction. Multiple biopsies were obtained in the lower third of the esophagus with cold forceps for histology. Verification of patient identification for the specimen was done by the physician and nurse using the patient's name, date and medical record number. Estimated blood loss was minimal. Scattered minimal inflammation characterized by erythema and granularity was found in the gastric antrum. The duodenal bulb and second portion of the duodenum were normal. Impression: - Z-line regular, at the gastroesophageal junction. - Gastritis. - Normal duodenal bulb and second portion of the duodenum. - Multiple biopsies were obtained in the lower third of the esophagus. Recommendation: - Patient has a contact number available for emergencies. The signs and symptoms of potential delayed complications were discussed with the patient. Return to normal activities tomorrow. Written discharge instructions were provided to the patient. - High fiber diet. - Continue present medications. - Follow an antireflux regimen. - Use Prilosec (omeprazole) 40 mg PO daily as per the script instructions. Dose to be tapered gradually if tolerated and no active heartburn symptoms. - Telephone GI clinic for pathology results in 2 weeks. - Return to primary care physician. Procedure Code(s): --- Professional --- 11013, Esophagogastroduodenoscopy, flexible, transoral; with biopsy, single or multiple Diagnosis Code(s): --- Professional --- K22.70, Bradley's esophagus without dysplasia K29.70, Gastritis, unspecified, without bleeding CPT copyright 2019 [employer]. All rights reserved. The codes documented in this report are preliminary and upon coupon clerk review may be revised to meet current compliance requirements. Maurice Fernandez MD Maurice Fernandez MD 08/01/2020 12:36:14 PM Electronically signed by Maurice Fernandez MD Number of Addenda: 0 Note Initiated On: 08/01/2020 12:02 PM Estimated Blood Loss: Estimated blood loss was minimal.
[2020-08-01 12:45] VITALS: BP 141/71
== END 2020-08-01 12:53 | disposition home or self-care (01) ==
LOC: M OPP 10:36
PROVIDERS: ATTEND Internal Medicine Gastroenterology
DX: K29.70 Gastritis, unspecified, without bleeding (principal); K22.70 Barrett's esophagus without dysplasia; E03.2 Hypothyroidism due to medicaments and other exogenous substances; Z92.3 Personal history of irradiation; Z79.899 Other long term (current) drug therapy; Z88.0 Allergy status to penicillin; Z88.5 Allergy status to narcotic agent; Z87.891 Personal history of nicotine dependence
CPT/HCPCS: 43239; 88305; J3010

== ENCOUNTER → 2021-01-15 | Outpatient (CLI) | payer MEDICARE, BC, OTHER ==
[~2021-01-15] MED LIST changes: -LIDOCAINE 2% 100MG/5ML SDV (FOR ANES.) As Ordered ONE; -NS 1,000 ML IV ONE; +OMEP40CA4 PO; -OMEP40CA97 PO; -fentaNYL 100 MCG/2 ML INJECTION (J3010) As Ordered ONE; -propofoL 200 MG/20 ML VIAL As Ordered ONE
--- NOTE | 2021-01-15 12:59 | REP ---
INDICATION: COUGH. COMPARISON: 12/03/2017 latest prior TECHNIQUE: PA and lateral FINDINGS: The superior mediastinal structures are midline. The cardiac silhouette is unremarkable in size, shape, and position. The diaphragmatic surfaces of the lungs are regular, and the costophrenic angles are clear. The pulmonary lewis are clear. The imaged osseous structures are intact. IMPRESSION: There is no acute cardiopulmonary disease. <Electronically signed by Evangelist Escamilla > 01/15/21 [id number]
== END ==
LOC: M RAD 11:20
PROVIDERS: ATTEND Internal Medicine
DX: R05 Cough (principal)

== ENCOUNTER → 2021-07-27 | Outpatient (CLI) | payer MEDICARE, BC, OTHER ==
[~2021-07-27] MED LIST changes: -D31000TA2 PO; +VITA100093 PO
== END ==
LOC: M WUC 11:50
PROVIDERS: ATTEND Physician Assistant
DX: M75.31 Calcific tendinitis of right shoulder (principal); S20.211A Contusion of right front wall of thorax, initial encounter; X58.XXXA Exposure to other specified factors, initial encounter; Y92.89 Other specified places as the place of occurrence of the external cause; Y93.89 Activity, other specified; Y99.8 Other external cause status

== ENCOUNTER → 2021-11-23 | Outpatient (CLI) | payer MEDICARE, BC, OTHER | LOC: M WUC 08:47 | PROVIDERS: ATTEND Internal Medicine | DX: R05.9 Cough, unspecified (principal) ==

== ENCOUNTER → 2022-02-07 | Outpatient (CLI) | payer MEDICARE, BC, OTHER ==
[2022-02-07 12:33] LABS: FREE T3 3.1 PG/ML (2.2-4.0); FREE T4 1.58 NG/DL (0.76-1.46); THYROID STIMULATING HORMONE 0.056 uIU/ML (0.358-3.740)
== END ==
LOC: M WUC 09:14
PROVIDERS: ATTEND Internal Medicine Endocrinology, Diabetes & Metabolism
DX: E89.0 Postprocedural hypothyroidism (principal); R53.81 Other malaise

== ENCOUNTER → 2022-07-10 | Outpatient (CLI) | payer MEDICARE, BC, OTHER ==
[~2022-07-10] MED LIST changes: +MONT-5 PO; -SING10TA32 PO
== END ==
LOC: M WHC 09:57
PROVIDERS: ATTEND Internal Medicine
DX: Z12.31 Encounter for screening mammogram for malignant neoplasm of breast (principal); M85.80 Other specified disorders of bone density and structure, unspecified site

== ENCOUNTER → 2023-02-20 | Outpatient (CLI) | payer MEDICARE, BC, OTHER | LOC: M WUC 10:00 | PROVIDERS: ATTEND Nurse Practitioner Family | DX: R05.9 Cough, unspecified (principal) ==

== ENCOUNTER 2023-02-28 10:09 | Emergency (ER) | payer MEDICARE, BC, OTHER ==
[~2023-02-28] VITALS: Ht 162.6 cm; Wt 61.9 kg
[2023-02-28] MEDS ORDERED: CEFD300C42 (11:09)
[2023-02-28] MEDS ORDERED: OMEP40CA5 (11:09)
[2023-02-28] MEDS ORDERED: SYNT112T2 (11:09)
[2023-02-28] MEDS ORDERED: VENTAER INH (13:46)
[2023-02-28] MEDS ORDERED: SPIR1CAP INH (13:46)
[2023-02-28] MEDS ORDERED: CETI-24 PO (13:46)
[2023-02-28 13:53] VITALS: BP 137/81; TEMP 97.7; O2SAT 95
== END 2023-02-28 13:55 | disposition home or self-care (01) ==
LOC: M ED 10:09
DX: J43.9 Emphysema, unspecified (principal); J98.11 Atelectasis; R05.9 Cough, unspecified; Z88.0 Allergy status to penicillin; Z88.5 Allergy status to narcotic agent

== ENCOUNTER → 2023-05-27 | Outpatient (CLI) | payer MEDICARE, BC, OTHER ==
[~2023-05-27] MED LIST changes: +CEFD1CAP9; +CETI-24 PO; +OMEP40CA5; +SPIR1CAP INH; +SYNT112T2; +VENTAER INH
== END ==
LOC: M PLAIMG 09:40
PROVIDERS: ATTEND Otolaryngology
DX: K11.20 Sialoadenitis, unspecified (principal)

== ENCOUNTER → 2023-06-02 | Outpatient (CLI) | payer MEDICARE, BC, OTHER | LOC: M WUC 13:08 | PROVIDERS: ATTEND Nurse Practitioner Family | DX: M25.572 Pain in left ankle and joints of left foot (principal); M77.31 Calcaneal spur, right foot ==

== ENCOUNTER → 2023-10-15 | Outpatient (CLI) | payer MEDICARE, BC, OTHER ==
[2023-10-15 11:32] LABS: HEMATOCRIT 40.7 % (36.0-47.0); HEMOGLOBIN 13.4 g/dl (12.0-15.5); MEAN CORPUSCULAR HEMOGLOBIN 31.2 pg (27.0-33.0); MEAN CORPUSCULAR HGB CONC 32.9 g/dl (32.0-36.5); MEAN CORPUSCULAR VOLUME 94.9 fl (80.0-96.0); PLATELET COUNT, AUTOMATED 308 10^3/uL (150-450); RED BLOOD COUNT 4.29 10^6/uL (4.00-5.40)
[2023-10-15 11:53] LABS: ALKALINE PHOSPHATASE 110 U/L (46-116); ALT/SGPT 18 U/L (7.0-40); AST/SGOT 16 U/L (<34); BILIRUBIN,TOTAL 0.9 MG/DL (0.3-1.2); BLOOD UREA NITROGEN 15 MG/DL (9-23); CALCIUM LEVEL 9.7 MG/DL (8.3-10.6); CARBON DIOXIDE LEVEL 29 MMOL/L (20-31); CHLORIDE LEVEL 109 MMOL/L (98-107); CHOLESTEROL LEVEL 221 MG/DL (<200); CHOLESTEROL RISK RATIO 3.15 (<5); CREATININE FOR GFR 0.78 MG/DL (0.55-1.30); GLOMERULAR FILTRATION RATE > 60.0 (>45); GLUCOSE, FASTING 95 MG/DL (74-106); HDL CHOLESTEROL 70.1 MG/DL (>40); LDL CHOLESTEROL 124.1 MG/DL (<100); NON-HDL-C 150.9 MG/DL; POTASSIUM SERUM 4.4 MMOL/L (3.5-5.1); SODIUM LEVEL 142 MMOL/L (136-145); TOTAL PROTEIN 6.7 G/DL (5.7-8.2); TRIGLYCERIDES LEVEL 134 MG/DL (<150)
[2023-10-15 11:54] LABS: THYROID STIMULATING HORMONE 1.356 uIU/ML (0.55-4.78); TOTAL 25(OH) VITAMIN D 36.3 NG/ML (20.0-100.0)
[2023-10-15 12:01] LABS: HEMOGLOBIN A1c 5.4 % (4.0-6.0)
== END ==
LOC: M RAD 09:49
PROVIDERS: ATTEND Family Medicine
DX: I10 Essential (primary) hypertension (principal); Z79.899 Other long term (current) drug therapy

== ENCOUNTER → 2023-10-27 | Outpatient (REF) | payer MEDICARE, BC, OTHER ==
[2023-10-27 17:47] LABS: APPEARANCE, URINE HAZY (CLEAR); BACTERIA, URINE AUTO NEGATIVE (NEGATIVE); BILIRUBIN, URINE AUTO NEGATIVE (NEGATIVE); BLOOD, URINE BLOOD NEGATIVE (NEGATIVE); COLOR, URINE YELLOW (YELLOW); GLUCOSE, URINE (UA) AUTO NEGATIVE (NEGATIVE); KETONE, URINE AUTO NEGATIVE (NEGATIVE); LEUKOCYTE ESTERASE, URINE AUTO 1+ (NEGATIVE); MUCUS, URINE SMALL (NEGATIVE); NITRITE, URINE AUTO NEGATIVE (NEGATIVE); PROTEIN, URINE AUTO NEGATIVE (NEGATIVE); RBC, URINE AUTO 1 /HPF (0-3); SPECIFIC GRAVITY URINE AUTO 1.017 (1.002-1.035); SQUAMOUS EPITHELIAL CELL UR AU 1 /HPF (0-6); UROBILINOGEN, URINE AUTO 0.2 mg/dL (0.0-2.0); WBC, URINE AUTO 22 /HPF (0-3)
== END ==
LOC: M LAB REF 16:32
PROVIDERS: ATTEND Physician Assistant Medical
DX: N39.0 Urinary tract infection, site not specified (principal)

== ENCOUNTER → 2023-12-05 | Outpatient (CLI) | payer MEDICARE, BC | LOC: M WHC 07:48 | PROVIDERS: ATTEND Family Medicine | DX: Z12.31 Encounter for screening mammogram for malignant neoplasm of breast (principal) ==

== ENCOUNTER → 2023-12-24 | Outpatient (CLI) | payer MEDICARE, BC | LOC: M WHC 09:57 | PROVIDERS: ATTEND Family Medicine | DX: R92.2 Inconclusive mammogram (principal) | CPT/HCPCS: 77065; G0279 ==

== ENCOUNTER → 2024-01-05 | Outpatient (CLI) | payer MEDICARE, BC ==
[2024-01-05 14:09] LABS: HEMATOCRIT 40.4 % (36.0-47.0); HEMOGLOBIN 13.3 g/dl (12.0-15.5); MEAN CORPUSCULAR HEMOGLOBIN 31.7 pg (27.0-33.0); MEAN CORPUSCULAR HGB CONC 32.9 g/dl (32.0-36.5); MEAN CORPUSCULAR VOLUME 96.2 fl (80.0-96.0); PLATELET COUNT, AUTOMATED 299 10^3/uL (150-450); WHITE BLOOD COUNT 6.9 10^3/uL (4.0-10.0)
[2024-01-05 14:16] LABS: ALBUMIN 4.1 G/DL (3.2-5.2); ALKALINE PHOSPHATASE 108 U/L (46-116); ALT/SGPT 18 U/L (7.0-40); AST/SGOT 15 U/L (<34); BILIRUBIN,TOTAL 0.7 MG/DL (0.3-1.2); BLOOD UREA NITROGEN 15 MG/DL (9-23); CALCIUM LEVEL 9.2 MG/DL (8.3-10.6); CARBON DIOXIDE LEVEL 26 MMOL/L (20-31); CHLORIDE LEVEL 111 MMOL/L (98-107); CREATININE FOR GFR 0.71 MG/DL (0.55-1.30); GLOMERULAR FILTRATION RATE > 60.0 (>39); GLUCOSE, FASTING 120 MG/DL (74-106); IRON (FE) 86 UG/DL (50-170); POTASSIUM SERUM 4.1 MMOL/L (3.5-5.1); SODIUM LEVEL 140 MMOL/L (136-145); TOTAL PROTEIN 6.9 G/DL (5.7-8.2)
[2024-01-05 14:17] LABS: PERCENT SATURATION 26.1 % (13.2-45.0); TOTAL IRON BINDING CAPACITY 329 UG/DL (250-425)
== END ==
LOC: M WUC 10:24
PROVIDERS: ATTEND Family Medicine
DX: D64.9 Anemia, unspecified (principal); R53.83 Other fatigue; I10 Essential (primary) hypertension

== ENCOUNTER → 2024-01-06 | Outpatient (CLI) | payer MEDICARE, BC ==
[~2024-01-06] MED LIST changes: +ISOVUE-370 76% 100ML VIAL ONE
== END ==
LOC: M PLAIMG 13:19
PROVIDERS: ATTEND Family Medicine
DX: R51.9 Headache, unspecified (principal); R42 Dizziness and giddiness; R47.81 Slurred speech
CPT/HCPCS: 70470; Q9967

== ENCOUNTER 2024-06-07 06:33 | Emergency (ER) | payer MEDICARE, BC, OTHER ==
[~2024-06-07] VITALS: Ht 162.6 cm; Wt 59.2 kg
[~2024-06-07 06:33] MED LIST changes: -ISOVUE-370 76% 100ML VIAL ONE
[2024-06-07] MEDS ORDERED: ISOVUE-370 76% 100ML VIAL As Ordered ONE (07:53)
[2024-06-07 08:01] LABS: BASO # 0.1 10^3/uL (0.0-0.2); BASO % 0.9 % (0.0-1.0); EOS # 0.1 10^3/uL (0.0-0.5); EOS % 1.8 % (0.0-3.0); HEMATOCRIT 43.7 % (36.0-47.0); LYMPH # 1.5 10^3/uL (1.5-5.0); LYMPH % 27.8 % (24.0-44.0); MEAN CORPUSCULAR HEMOGLOBIN 30.5 pg (27.0-33.0); MEAN CORPUSCULAR VOLUME 95.2 fl (80.0-96.0); MONO # 0.5 10^3/uL (0.0-0.8); MONO % 8.7 % (2.0-8.0); NEUTROPHILS # 3.3 10^3/uL (1.5-8.5); NEUTROPHILS % 60.6 % (36.0-66.0); PLATELET COUNT, AUTOMATED 287 10^3/uL (150-450); RED BLOOD COUNT 4.59 10^6/uL (4.00-5.40); WHITE BLOOD COUNT 5.5 10^3/uL (4.0-10.0)
[2024-06-07 08:14] LABS: INR 0.89; PARTIAL THROMBOPLASTIN TIME 29.1 SECONDS (24.8-34.2); PROTHROMBIN TIME 12.3 SECONDS (12.5-14.5)
[2024-06-07 08:28] LABS: CK-MB VALUE MASS < 1.0 NG/ML (<3.6)
[2024-06-07 08:32] LABS: THYROID STIMULATING HORMONE 0.851 uIU/ML (0.55-4.78)
[2024-06-07 08:39] LABS: CPK CREATINE PHOSPHOKINASE 83 U/L (34-145)
[2024-06-07 09:57] LABS: CK-MB VALUE MASS < 1.0 NG/ML (<3.6)
[2024-06-07 10:02] LABS: CPK CREATINE PHOSPHOKINASE 86 U/L (34-145); MB/CK RELATIVE INDEX 1.16 (< OR =4)
[2024-06-07 10:50] VITALS: TEMP 97.5
[2024-06-07 11:00] VITALS: BP 130/67; O2SAT 98
== END 2024-06-07 11:19 | disposition home or self-care (01) ==
LOC: M ED 06:33
DX: M54.2 Cervicalgia (principal); R42 Dizziness and giddiness; R94.31 Abnormal electrocardiogram [ECG] [EKG]; Z88.0 Allergy status to penicillin; Z88.5 Allergy status to narcotic agent; Z79.2 Long term (current) use of antibiotics; Z79.51 Long term (current) use of inhaled steroids; Z79.810 Long term (current) use of selective estrogen receptor modulators (SERMs); Z79.899 Other long term (current) drug therapy
CPT/HCPCS: 36415; 70450; 70496; 70498; 80047; 82550; 82553; 84443; 84484; 85025; 85610; 85730; 93005; 99284; Q9967

== ENCOUNTER 2024-08-18 16:13 | Emergency (ER) | payer MEDICARE, BC, OTHER ==
[~2024-08-18] VITALS: Ht 162.6 cm; Wt 70.0 kg
[2024-08-18 16:24] VITALS: TEMP 98.1
[2024-08-18] MEDS: LIDOCAINE 5% (LIDODERM) PATCH TD ONE (16:33)
[2024-08-18] MEDS: traMADol 50 MG TAB PO ONE (16:34)
[2024-08-18 17:45] VITALS: BP 136/71; O2SAT 97
[2024-08-18] MEDS ORDERED: TRAM50TA2 PO (17:54)
[2024-08-18] MEDS ORDERED: LIDO5DIS41 TD (17:57)
== END 2024-08-18 18:00 | disposition home or self-care (01) ==
LOC: EDBD 16:13 → M ED 16:13
DX: M54.6 Pain in thoracic spine (principal); J44.9 Chronic obstructive pulmonary disease, unspecified; I25.2 Old myocardial infarction; Z79.2 Long term (current) use of antibiotics; Z79.51 Long term (current) use of inhaled steroids; Z79.899 Other long term (current) drug therapy

== ENCOUNTER 2024-08-20 17:20 | Emergency (ER) | payer MEDICARE, BC ==
[~2024-08-20] VITALS: Ht 162.6 cm; Wt 64.5 kg
[~2024-08-20 17:20] MED LIST changes: +LIDO5DIS41 TD; +TRAM50TA2 PO
[2024-08-20 19:28] LABS: KETONE, URINE AUTO RFX 1+ mg/dL (NEGATIVE); LEUKOCYTE ESTERASE UR AUTO RFX NEGATIVE (NEGATIVE); MUCUS, URINE RFX SMALL (NEGATIVE); NITRITE, URINE AUTO RFX NEGATIVE (NEGATIVE); RBC, URINE AUTO RFX 0 /HPF (0-3); SQUAM EPITHELIAL CELL UR AURFX 2 /HPF (0-6); WBC, URINE AUTO RFX 2 /HPF (0-3)
[2024-08-20 19:50] LABS: BASO # 0.1 10^3/uL (0.0-0.2); BASO % 0.4 % (0.0-1.0); EOS % 0.2 % (0.0-3.0); HEMATOCRIT 40.8 % (36.0-47.0); HEMOGLOBIN 13.7 g/dl (12.0-15.5); LYMPH # 1.4 10^3/uL (1.5-5.0); LYMPH % 12.3 % (24.0-44.0); MEAN CORPUSCULAR HEMOGLOBIN 30.8 pg (27.0-33.0); MEAN CORPUSCULAR HGB CONC 33.6 g/dl (32.0-36.5); MEAN CORPUSCULAR VOLUME 91.7 fl (80.0-96.0); MONO # 1.5 10^3/uL (0.0-0.8); MONO % 12.6 % (2.0-8.0); NEUTROPHILS # 8.6 10^3/uL (1.5-8.5); NEUTROPHILS % 74.2 % (36.0-66.0); PLATELET COUNT, AUTOMATED 289 10^3/uL (150-450); RED BLOOD COUNT 4.45 10^6/uL (4.00-5.40); WHITE BLOOD COUNT 11.6 10^3/uL (4.0-10.0)
[2024-08-20] MEDS: ACETAMINOPHEN 325 MG TAB PO ONE (20:18)
[2024-08-20 20:23] LABS: BLOOD UREA NITROGEN 14 MG/DL (9-23); CALCIUM LEVEL 9.2 MG/DL (8.3-10.6); CARBON DIOXIDE LEVEL 28 MMOL/L (20-31); CHLORIDE LEVEL 97 MMOL/L (98-107); CREATININE FOR GFR 0.65 MG/DL (0.55-1.30); GLOMERULAR FILTRATION RATE > 90.0 (>39); GLUCOSE, FASTING 137 MG/DL (74-106); POTASSIUM SERUM 4.4 MMOL/L (3.5-5.1); SODIUM LEVEL 135 MMOL/L (136-145)
[2024-08-20] MEDS ORDERED: ISOVUE-370 76% 100ML VIAL As Ordered ONE (23:30)
[2024-08-21 00:31] VITALS: BP 155/65
[2024-08-21] MEDS ORDERED: COLA100C5 PO (02:17)
[2024-08-21] MEDS: MAGNESIUM CITRATE 300ML BTL PO ONE (02:20)
[2024-08-21 02:30] VITALS: TEMP 98.9; O2SAT 95
== END 2024-08-21 02:59 | disposition home or self-care (01) ==
LOC: M ED 17:20 → EDBD 17:20 → M ED 08-21 02:59
DX: K59.00 Constipation, unspecified (principal); R00.0 Tachycardia, unspecified; J44.9 Chronic obstructive pulmonary disease, unspecified; Z88.0 Allergy status to penicillin; Z88.5 Allergy status to narcotic agent; Z79.2 Long term (current) use of antibiotics; Z79.51 Long term (current) use of inhaled steroids; Z79.899 Other long term (current) drug therapy; Z79.810 Long term (current) use of selective estrogen receptor modulators (SERMs)
CPT/HCPCS: 36415; 74177; 80048; 81001; 85025; 87486; 87581; 87633; 87798; 93005; 99284; Q9967

== ENCOUNTER → 2024-11-14 | Outpatient (REF) | payer MEDICARE, BC ==
[~2024-11-14] MED LIST changes: +COLA100C5 PO; +LIDO1ADH93 TD; -LIDO5DIS41 TD
== END ==
LOC: M LAB REF 19:44
PROVIDERS: ATTEND Registered Nurse
DX: N39.0 Urinary tract infection, site not specified (principal)

== ENCOUNTER → 2024-11-25 | Outpatient (REF) | payer MEDICARE, BC ==
[2024-11-25 13:41] LABS: APPEARANCE, URINE HAZY (CLEAR); BACTERIA, URINE AUTO NEGATIVE (NEGATIVE); BILIRUBIN, URINE AUTO NEGATIVE (NEGATIVE); BLOOD, URINE BLOOD NEGATIVE (NEGATIVE); GLUCOSE, URINE (UA) AUTO NEGATIVE (NEGATIVE); KETONE, URINE AUTO NEGATIVE (NEGATIVE); LEUKOCYTE ESTERASE, URINE AUTO NEGATIVE (NEGATIVE); MUCUS, URINE SMALL (NEGATIVE); NITRITE, URINE AUTO NEGATIVE (NEGATIVE); PROTEIN, URINE AUTO NEGATIVE (NEGATIVE); RBC, URINE AUTO 0 /HPF (0-3); SPECIFIC GRAVITY URINE AUTO 1.025 (1.002-1.035); SQUAMOUS EPITHELIAL CELL UR AU 1 /HPF (0-6); UROBILINOGEN, URINE AUTO 0.2 mg/dL (0.0-2.0); WBC, URINE AUTO 1 /HPF (0-3)
== END ==
LOC: M LAB REF 12:38
PROVIDERS: ATTEND Physician Assistant
DX: N39.0 Urinary tract infection, site not specified (principal)

== ENCOUNTER → 2025-01-13 | Outpatient (REF) | payer MEDICARE, OTHER ==
[~2025-01-13] MED LIST changes: -VITA500T17 PO; +VITA500T8 PO
== END ==
LOC: M LAB REF 18:07
PROVIDERS: ATTEND Internal Medicine
DX: R25.2 Cramp and spasm (principal)